=== PATIENT | male | born 1935 | race Caucasian/White ===

== ENCOUNTER 2017-03-27 07:19 | Day surgery (SDC) | payer MEDICARE, OTHER ==
[~2017-03-27] VITALS: Ht 180.3 cm; Wt 68.2 kg
[~2017-03-27 07:19] MED LIST: ATOR10TA PO; CHLO10 PO; FLUC100T41 PO; FOLI1 PO; OMEP20TA39 PO; OXYC1SOL5 PO; THIA100T PO
[2017-03-27 07:42] VITALS: BP 129/68; PULSE 74; RESP 20; TEMP 97.5; O2SAT 90
[2017-03-27 08:20] LABS: PROTHROMBIN TIME - PATIENT 11.4 SEC (9.8-11.6)
[2017-03-27] MEDS ORDERED: ceFAZolin 2 GM PREMIX 50 ML - implanted port removal IV SCH (08:30)
[2017-03-27 09:50] VITALS: BP 125/67; PULSE 64; RESP 20; TEMP 97.4; O2SAT 98
[2017-03-27 10:05] VITALS: BP 120/57; PULSE 69; RESP 20; O2SAT 97
[2017-03-27 10:30] VITALS: BP 120/63; PULSE 65; RESP 20; O2SAT 98
--- NOTE | 2017-03-27 10:51 | PD.RAD ---
Post Procedure Progress Note Pre Procedure Diagnosis: (1) Esophageal adenocarcinoma Post Procedure Diagnosis: (1) Esophageal adenocarcinoma Procedure Date: Mar 27, 2017 Supervising Radiologist: Torey Reyes Proceduralist/Assist: Yulissa Campo, RT(R)(CV), RT Reynaldo(R) Anesthesia: Local Plan of Activity Patient to Unit: ROPU Patient Condition: Good See PACS Report for procedural detail/treatment Central Venous Access Device Procedure 1 Right Internal Jugular Infusaport Removal single lumen Torey Reyes MD Mar 27, 2017 10:51
[2017-03-27] MEDS ORDERED: SODIUM CHLORIDE 0.9% FLUSH 10 ML FLUSH IVF PRN (11:00)
--- NOTE | 2017-03-27 12:31 | RADRPT ---
EXAM DATE/TIME: 03/27/2017 00:00 [facility] COMPARISON: No previous studies available for comparison. INDICATIONS : Patient no longer in need of port, here for port removal. MEDICAL HISTORY : Esophageal carcinoma, 2005 prostate cancer, hypertension, hypercholesterolemia, GERD, EtOH abuse and tobacco abuse SURGICAL HISTORY : Left ankle surgery, left inguinal hernia repair, 2004 Prostate cancer treated wt radioactive seeds with palladium. ENCOUNTER: Initial ACUITY: 1 year PAIN SCORE: 0/10 0 minutes 1.) 100 mcg fentanyl (Sublimaze) IV PROCEDURE : 1. Removal of [id number]. 2. Conscious sedation with continuous EKG and oximetry monitoring. The risk, benefits and potential complications of [id number] removal were discussed. Written conse nt was obtained. The patient was placed supine. The chest wall was prepped in sterile fashion. Full sterile techniqu e was used, including cap, mask, sterile gloves and gown, and a large sterile sheet. Hand hygiene an d 2% chlorhexidine and/or Betadine/alcohol prep was utilized per protocol for cutaneous antisepsis. The skin and subcutaneous tissues were infiltrated with local anesthetic solution. A small incision w as made, the subcutaneous pocket was opened. The port was dissected from the subcutaneous tissues and easily removed in one piece. The pocket incision was closed with subcuticular Vicryl suture. Steri -Strips were applied. Conscious sedation was performed with the prescribed dosages and duration as above in the presence of an independent trained radiology nurse to assist in the monitoring of the patient. EKG and oximetry remained stable throughout the procedure. The patient tolerated the procedure well and there were no complications. The patient was sent to post anesthesia recovery in stable condition. CONCLUSION: Uncomplicated port removal as above. Torey Reyes MD on March 27, 2017 at 12:29 Board Certified Radiologist. This report was verified electronically.
== END 2017-03-27 10:35 | disposition home or self-care (01) ==
LOC: HROP 07:19 → HRIP 07:22 → HROP 10:35
PROVIDERS: ATTEND Internal Medicine Hematology & Oncology
DX: Z45.2 Encounter for adjustment and management of vascular access device (principal); C15.4 Malignant neoplasm of middle third of esophagus; I10 Essential (primary) hypertension; E78.00 Pure hypercholesterolemia, unspecified; K21.9 Gastro-esophageal reflux disease without esophagitis; R07.9 Chest pain, unspecified; F10.10 Alcohol abuse, uncomplicated; F17.200 Nicotine dependence, unspecified, uncomplicated; Z85.46 Personal history of malignant neoplasm of prostate; Z01.818 Encounter for other preprocedural examination
CPT/HCPCS: 36590; 85610; 85730; J0690; J3010

== ENCOUNTER 2017-09-04 07:57 | Inpatient (IN) | payer MEDICARE, OTHER ==
[~2017-09-04] VITALS: Ht 180.3 cm; Wt 58.9 kg
[2017-09-04] VITALS (7 sets, daily range): BP systolic 123–155; BP diastolic 60–69; PULSE 53–72; RESP 16–20; TEMP 97.2–97.6; O2SAT 96–100
--- NOTE | 2017-09-04 08:40 | PD ---
HPI Chief Complaint: Medical Clearance Time Seen by Provider: 08:15 Travel History International Travel<30 days: No Contact w/Intl Traveler<30days: No Traveled to known affect area: No History of Present Illness HPI 82-year-old male complains of trouble swallowing food. Patient has history of esophageal cancer. 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 He had no evidence of metastatic disease. Patient was treated with chemotherapy and radiation therapy which completed in 2015. Patient had PET scan done on October which shows suspicious for recurrent disease at the gastric junction. Patient had endoscopy done by Dr. Miner in 2017 was reported to be normal. Patient however complains of trouble swallowing food for the past 2 weeks. Patient states that he has to drink water and sure slowly to get that through. Patient states that he has occasional trouble with eating food. Patient states that he has vomiting with eating solid food. Patient denies any headache. Patient denies any chest pain or shortness of breath. Patient denies abdominal pain. Patient denies any fever chills. Patient was seen by Dr. Pearson, oncologist yesterday and was advised to be admitted for endoscopy workup. Patient has history GERD, hyperlipidemia, hypertension, prostate cancer status post radioactive treatment. PFSH Past Medical History Arthritis: Yes (HANDS) Asthma: No Autoimmune Disease: No Heart Rhythm Problems: No Cancer: Yes (THROAT/PROSTATE) Cardiovascular Problems: No High Cholesterol: Yes Chemotherapy: Yes Chest Pain: Yes Congestive Heart Failure: No COPD: No Cerebrovascular Accident: No Diabetes: No Diminished Hearing: No Gastrointestinal Disorders: Yes (Esophageal Cancer 2016) GERD: Yes Glaucoma: No Genitourinary: No Headaches: No Hepatitis: No Hiatal Hernia: No Hypertension: Yes Immune Disorder: Yes Kidney Stones: No Musculoskeletal: No Neurologic: No Psychiatric: No Reproductive: Yes Respiratory: No Immunizations Current: No Myocardial Infarction: No Radiation Therapy: Yes (seeds) Renal Failure: No Seizures: No Sleep Apnea: No Thyroid Disease: No Ulcer: No Tetanus Vaccination: > 5 Years Influenza Vaccination: No Past Surgical History Abdominal Surgery: No AICD: No Cardiac Surgery: No Ear Surgery: No Endocrine Surgery: No Eye Surgery: No Genitourinary Surgery: No Gynecologic Surgery: No Neurologic Surgery: No Oral Surgery: No Pacemaker: No Thoracic Surgery: No Other Surgery: Yes (HERNIA REPAIR APPROXIMATELY 20 YEARS AGO) Social History Alcohol Use: No (2 BEERS PER DAY) Tobacco Use: Yes (1PPD) Substance Use: No Allergies-Medications (Allergen,Severity, Reaction): Coded Allergies: penicillin G (Unverified Allergy, Mild, Rash, 09/04/17) Reported Meds & Prescriptions Reported Meds & Active Scripts Active No Active Prescriptions or Reported Medications Review of Systems General / Constitutional: No: Fever Eyes: No: Visual changes HENT: No: Headaches Cardiovascular: No: Chest Pain or Discomfort Respiratory: No: Shortness of Breath Gastrointestinal: Positive: Loss of Appetite, No: Abdominal Pain Genitourinary: No: Dysuria Musculoskeletal: No: Pain Skin: No Rash Neurologic: No: Weakness Psychiatric: No: Depression Endocrine: No: Polydipsia Hematologic/Lymphatic: No: Easy Bruising Physical Exam Narrative GENERAL: Well-nourished, well-developed patient. SKIN: Focused skin assessment warm/dry. HEAD: Normocephalic. EYES: No scleral icterus. No injection or drainage. NECK: Supple, trachea midline. No JVD or lymphadenopathy. CARDIOVASCULAR: Regular rate and rhythm without murmurs, gallops, or rubs. RESPIRATORY: Breath sounds equal bilaterally. No accessory muscle use. GASTROINTESTINAL: Abdomen soft, non-tender, nondistended. MUSCULOSKELETAL: No cyanosis, or edema. BACK: Nontender without obvious deformity. No CVA tenderness. Neurologic exam normal. Data Data Last Documented VS Vital Signs Date Time Temp Pulse Resp B/P (MAP) Pulse Ox O2 Delivery O2 Flow Rate FiO2 09/04/17 08:33 97 Room Air 09/04/17 08:33 16 09/04/17 08:07 97.2 72 123/60 (81) Orders Orders Electrocardiogram (09/04/17 08:25) Complete Blood Count With Diff (09/04/17 08:25) Comprehensive Metabolic Panel (09/04/17 08:25) Prothrombin Time / Inr (Pt) (09/04/17 08:25) Act Partial Throm Time (Ptt) (09/04/17 08:25) Chest, Single Ap (09/04/17 08:25) Iv Access Insert/Monitor (09/04/17 08:25) Ecg Monitoring (09/04/17 08:25) Oximetry (09/04/17 08:25) Labs Laboratory Tests Test 09/04/17 08:35 White Blood Count 7.9 TH/MM3 Red Blood Count 4.11 MIL/MM3 Hemoglobin 13.6 GM/DL Hematocrit 39.9 % Mean Corpuscular Volume 97.2 FL Mean Corpuscular Hemoglobin 33.0 PG Mean Corpuscular Hemoglobin Concent 34.0 % Red Cell Distribution Width 13.2 % Platelet Count 199 TH/MM3 Mean Platelet Volume 7.8 FL Neutrophils (%) (Auto) 76.7 % Lymphocytes (%) (Auto) 14.9 % Monocytes (%) (Auto) 6.7 % Eosinophils (%) (Auto) 1.4 % Basophils (%) (Auto) 0.3 % Neutrophils # (Auto) 6.0 TH/MM3 Lymphocytes # (Auto) 1.2 TH/MM3 Monocytes # (Auto) 0.5 TH/MM3 Eosinophils # (Auto) 0.1 TH/MM3 Basophils # (Auto) 0.0 TH/MM3 CBC Comment DIFF FINAL Differential Comment Prothrombin Time 11.6 SEC Prothromb Time International Ratio 1.1 RATIO Activated Partial Thromboplast Time 27.0 SEC Blood Urea Nitrogen 20 MG/DL Creatinine 1.08 MG/DL Random Glucose 142 MG/DL Total Protein 7.4 GM/DL Albumin 3.5 GM/DL Calcium Level 9.1 MG/DL Alkaline Phosphatase 177 U/L Aspartate Amino Transf (AST/SGOT) 33 U/L Alanine Aminotransferase (ALT/SGPT) 31 U/L Total Bilirubin 0.5 MG/DL Sodium Level 135 MEQ/L Potassium Level 4.1 MEQ/L Chloride Level 100 MEQ/L Carbon Dioxide Level 28.4 MEQ/L Anion Gap 7 MEQ/L Estimat Glomerular Filtration Rate 65 ML/MIN [place] Medical Decision Making Medical Screen Exam Complete: Yes Emergency Medical Condition: Yes Interpretation(s) Last Impressions Chest X-Ray 09/04/17 0825 Signed Impressions: Service Date/Time: Monday, September 04, 2017 08:35 - CONCLUSION: New minimal parenchymal changes right apex New from comparison study. Waldemar Mckeon MD FACR 1348 PM. CBC within normal limits. Sodium 135. BUN 20. GFR 65. Glucose 142. Differential Diagnosis Differential diagnosis including recurrence of esophageal cancer, dysphagia, motility problem. Narrative Course 82-year-old male with problem with swallowing. History of esophageal cancer. Recent PET scan showed possible recurrence in the gastric junction. Normal saline solution 1 25 cc an hour. Diagnosis Primary Impression: Esophageal obstruction Additional Impression: History of esophageal cancer Admitting Information Admitting Physician Requests: Admit Scripts No Active Prescriptions or Reported Meds Nghia Downs MD Sep 04, 2017 08:40
[2017-09-04 08:48] LABS: BASOPHIL % 0.3 % (0.0-2.0); EOSINOPHIL # 0.1 TH/MM3 (0-0.4); EOSINOPHIL % 1.4 % (0.0-4.0); HEMATOCRIT 39.9 % (39.0-51.0); HEMOGLOBIN 13.6 GM/DL (13.0-17.0); LYMPH % 14.9 % (9.0-44.0); LYMPHOCYTE # 1.2 TH/MM3 (1.0-4.8); MEAN CELL VOLUME 97.2 FL (80.0-100.0); MEAN PLATELET VOLUME 7.8 FL (7.0-11.0); MONO % 6.7 % (0.0-8.0); MONOCYTE # 0.5 TH/MM3 (0-0.9); NEUT % 76.7 % (16.0-70.0); PLATELET COUNT 199 TH/MM3 (150-450); RED BLOOD COUNT 4.11 MIL/MM3 (4.50-5.90); RED CELL DISTRIBUTION WIDTH 13.2 % (11.6-17.2); WHITE BLOOD COUNT 7.9 TH/MM3 (4.0-11.0)
--- NOTE | 2017-09-04 08:48 | RADRPT ---
EXAM DATE/TIME: 09/04/2017 08:35 [facility] COMPARISON: CHEST SINGLE AP, October 16, 2015, 9:25. INDICATIONS : Distal esophageal pain when eating. Patient states recurrence of esophageal carcinoma. MEDICAL HISTORY : Carcinoma, prostatic. Carcinoma, esophageal. Gastroesophageal reflux disease. SURGICAL HISTORY : Hernia repair. ENCOUNTER: Initial ACUITY: 3 days PAIN SCORE: 4/10 LOCATION: distal esophagus FINDINGS: Minimal parenchymal changes in the right apex new from comparison study. No other suspicious lung no dules.. The cardiomediastinal contours are unremarkable. Osseous structures are intact. CONCLUSION: New minimal parenchymal changes right apex New from comparison study. Waldemar Mckeon MD FACR on September 04, 2017 at 8:44 Board Certified Radiologist. This report was verified electronically.
[2017-09-04 08:56] LABS: INTERNATIONAL NORMALIZED RATIO 1.1 RATIO; PROTHROMBIN TIME - PATIENT 11.6 SEC (9.8-11.6)
[2017-09-04 09:11] LABS: ALBUMIN 3.5 GM/DL (3.4-5.0); AST (GOT) 33 U/L (15-37); BICARBONATE 28.4 MEQ/L (21.0-32.0); BLOOD UREA NITROGEN 20 MG/DL (7-18); CALCIUM 9.1 MG/DL (8.5-10.1); CHLORIDE 100 MEQ/L (98-107); CREATININE 1.08 MG/DL (0.60-1.30); GLOMERULAR FILTRATION RATE 65 ML/MIN (>89); GLUCOSE,RANDOM 142 MG/DL (74-106); SODIUM (NA) 135 MEQ/L (136-145)
[2017-09-04 09:12] LABS: ALT (GPT) 31 U/L (12-78)
[2017-09-04 09:15] LABS: ALKALINE PHOSPHATASE 177 U/L (45-117); TOTAL BILIRUBIN ADULT 0.5 MG/DL (0.2-1.0); TOTAL PROTEIN 7.4 GM/DL (6.4-8.2)
[2017-09-04] MEDS ORDERED: SODIUM CHLORIDE 0.9% FLUSH 10 ML FLUSH IV FLUSH PRN (14:15)
[2017-09-04] MEDS ORDERED: NALOXONE HCL 0.4 MG/ML AMP IV PUSH PRN (14:15)
[2017-09-04] MEDS ORDERED: BISACODYL 10 MG SUPP RECTAL PRN (14:15)
[2017-09-04] MEDS ORDERED: MAGNESIUM HYDROXIDE SUSP 30 ML CUP PO PRN (14:15)
[2017-09-04] MEDS ORDERED: ACETAMINOPHEN 325 MG TAB PO PRN (14:15)
[2017-09-04] MEDS ORDERED: SODIUM CHLOR 0.9% 1000 ML INJ 1,000 ML IV SCH (14:15)
[2017-09-04] MEDS ORDERED: SENNOSIDES 8.6 MG TAB PO PRN (14:15)
[2017-09-04] MEDS ORDERED: LACTULOSE SYRUP 20 GM/30 ML CUP PO PRN (14:15)
[2017-09-04] MEDS ORDERED: ONDANSETRON HCL 4 MG/2 ML VIAL IVP PRN (14:15)
[2017-09-04] MEDS: SODIUM CHLOR 0.45% 1000 ML INJ 1,000 ML IV SCH (15:16)
[2017-09-04] MEDS: HEPARIN SODIUM - SQ 10,000 UNITS/ML VIAL SQ SCH (15:16)
--- NOTE | 2017-09-04 16:04 | PD.CONS ---
HPI History of Present Illness This is a 82 year old male with hx esophageal ca diagnosed 2016 s/p chemo and radiation who was referred by Dr Church for endoscopic w/u after having recent PET scan suspicious for recurrent malignancy GE junction. Pt had normal EGD 2017. Pt is c/o of dysphagia and weight loss. For the last 2-3 weeks he has had difficulty swallowing solids and some liquids. He regurgitates most solid food that he eats. he is able to tolerate liquids and ensure but it takes him a long time to drink small amounts. He has lost 20lbs in the last 3-4 weeks. He is scheduled for EUS with Dr Murrell 09/20/17. (Cata Andujar) PFSH Past Medical History prostate ca esophageal ca Past Surgical History ORIF ankle prostate seeds (Cata Andujar) Coded Allergies: penicillin G (Unverified Allergy, Mild, Rash, 09/04/17) Family History unk Social History drinks 1 beer daily but none in last couple weeks smokes 1ppd denies illicit drug use (Cata Andujar) Review of Systems Constitutional: COMPLAINS OF: Weight loss Endocrine: DENIES: Polydipsia Eyes: DENIES: Blurred vision Ears, nose, mouth, throat: DENIES: Hearing loss Respiratory: DENIES: Cough Cardiovascular: DENIES: Chest pain Gastrointestinal: COMPLAINS OF: Vomiting, Difficulty Swallowing, DENIES: Abdominal pain, Black stools, Bloody stools, Nausea, Odynophagia, Hematemesis Genitourinary: DENIES: Hematuria Musculoskeletal: DENIES: Joint Swelling Integumentary: DENIES: Rash Hematologic/lymphatic: DENIES: Bruising Immunologic/allergic: DENIES: Eczema Neurologic: DENIES: Abnormal gait Psychiatric: DENIES: Confusion (Cata Andujar) GI Exam Vitals I&O Vital Signs Date Time Temp Pulse Resp B/P (MAP) Pulse Ox O2 Delivery O2 Flow Rate FiO2 09/04/17 15:00 54 20 145/65 (91) 96 Room Air 09/04/17 13:00 57 19 144/65 (91) 96 Room Air 09/04/17 11:00 60 19 124/60 (81) 97 Room Air 09/04/17 08:33 97 Room Air 09/04/17 08:33 16 99 Room Air 09/04/17 08:07 97.2 72 17 123/60 (81) 100 Imaging Last Impressions Chest X-Ray 09/04/17 0855 Signed Impressions: Service Date/Time: Monday, September 04, 2017 08:35 - CONCLUSION: New minimal parenchymal changes right apex New from comparison study. Waldemar Mckeon MD FACR Laboratory Test 09/04/17 08:35 White Blood Count 7.9 TH/MM3 Red Blood Count 4.11 MIL/MM3 Hemoglobin 13.6 GM/DL Hematocrit 39.9 % Mean Corpuscular Volume 97.2 FL Mean Corpuscular Hemoglobin 33.0 PG Mean Corpuscular Hemoglobin Concent 34.0 % Red Cell Distribution Width 13.2 % Platelet Count 199 TH/MM3 Mean Platelet Volume 7.8 FL Neutrophils (%) (Auto) 76.7 % Lymphocytes (%) (Auto) 14.9 % Monocytes (%) (Auto) 6.7 % Eosinophils (%) (Auto) 1.4 % Basophils (%) (Auto) 0.3 % Neutrophils # (Auto) 6.0 TH/MM3 Lymphocytes # (Auto) 1.2 TH/MM3 Monocytes # (Auto) 0.5 TH/MM3 Eosinophils # (Auto) 0.1 TH/MM3 Basophils # (Auto) 0.0 TH/MM3 CBC Comment DIFF FINAL Differential Comment Prothrombin Time 11.6 SEC Prothromb Time International Ratio 1.1 RATIO Activated Partial Thromboplast Time 27.0 SEC Blood Urea Nitrogen 20 MG/DL Creatinine 1.08 MG/DL Random Glucose 142 MG/DL Total Protein 7.4 GM/DL Albumin 3.5 GM/DL Calcium Level 9.1 MG/DL Alkaline Phosphatase 177 U/L Aspartate Amino Transf (AST/SGOT) 33 U/L Alanine Aminotransferase (ALT/SGPT) 31 U/L Total Bilirubin 0.5 MG/DL Sodium Level 135 MEQ/L Potassium Level 4.1 MEQ/L Chloride Level 100 MEQ/L Carbon Dioxide Level 28.4 MEQ/L Anion Gap 7 MEQ/L Estimat Glomerular Filtration Rate 65 ML/MIN Physical Examination HEENT: PERRL; normocephalic; atraumatic; no jaundice. CHEST: CTA, diminished CARDIAC: RRR ABDOMEN: Soft, nondistended, nontender; no hepatosplenomegaly; bowel sounds are present in all four quadrants. EXTREMITIES: No clubbing, cyanosis, or edema. SKIN: Normal; no rash; no jaundice. OWNER/PHOTOGRAPHER: No focal deficits; alert and oriented times three. (Cata Andujar) Assessment and Plan Plan ASSESSMENT - dysphagia, weight loss - poss malignancy. 2-3 weeks difficulty swallowing, regurgitates solids and must drink liquids slowly. reportedly normal EGD 2016. recent PET scan suspicious for recurrent malignancy GE jxn. CT 06/2017 showing enlargement previously seen mass GE jxn. scheduled for EUS 09/20/17. lost 20lbs in last 3-4 wks PLAN - EGD in am - obtain consent - full liquid diet - NPO after midnight - further recs to follow pt seen by myself and Dr Lora and this note is on his behalf (Cata Andujar) Plan patient was seen and examined, agree with above note, possible esophageal cancer recurrence, plan EGD in am, also may need EUS for submucosal evaluation (Marty Lora MD) Cata Andujar Sep 04, 2017 16:04 Marty Lora MD Sep 04, 2017 16:13
[2017-09-04] MEDS: DOCUSATE SODIUM 50 MG/SENNA 8.6 MG TAB PO SCH (20:55)
[2017-09-04] MEDS: SODIUM CHLORIDE 0.9% FLUSH 10 ML FLUSH IV FLUSH SCH (20:56)
--- NOTE | 2017-09-04 21:01 | EKG ---
Date Performed: 09/04/2017 Time Performed: 08:29:11 PTAGE: 82 years EKG: SINUS BRADYCARDIA WITH FIRST DEGREE AV BLOCK ABNORMAL ECG INTERPRETATION BASED ON A DEFAULT AGE OF 40 YEARS NO PREVIOUS TRACING DOCTOR: Jamie Beauchamp Interpretating Date/Time 09/04/2017 21:00:09
--- NOTE | 2017-09-04 22:05 | MB ---
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 PATIENT PROFILE: The patient is an 82-year-old male. He is . He was born in [place], and has lived in [place] since 1955. He has 1 son. He resides in [place]. He is retired. 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 He has smoked 1-1/2 packs of cigarettes per day for at least 50 years, although at the present tobacco use is rare. He is alcoholic. In the past he would drink 8 beers per day. Currently, he still drinks, but a limited amount because he is unable to swallow. HISTORY OF PRESENT ILLNESS: The patient is an 82-year-old male who developed progressive dysphagia. On 10/17/2015, he had a CAT scan of the thorax and was found to have a 6 cm mass involving the mid esophagus. On 10/17/2015 he had upper endoscopy and biopsy of the mid esophagus and was found to have a moderately differentiated squamous cell carcinoma. He had no evidence of metastatic disease and his clinical stage was T3 N0 M0. He was treated with a combination of radiation therapy and weekly carboplatin and Taxol using the CROSS regimen. He did well and had a complete response. He underwent sequential PET scans and upper endoscopies and had no evidence of active disease. He had a followup PET CT scan on 07/16/2017. He had an appointment to see me following this. The PET scan was positive for recurrent tumor involving the distal esophagus or proximal stomach. He arrived at the office and after waiting for between 30 and 45 minutes, he left and decided that he would rather go to a bar. He went to the bar, drank, returned home. We contacted him and he did not return until I saw him yesterday. On 08/02/[address] Church who felt that he had recurrence and referred him for upper endoscopy. I saw the patient yesterday in the office and it was apparent that he needed to move forward with evaluation and treatment immediately. His upper endoscopy was scheduled for approximately 2 or 3 weeks from now. Mr. Marie is unable to swallow or consume any significant amount of liquid or food. He has severe dysphagia. He has lost 20 pounds. He has muscle loss. He is slowly dying. Arrangements were made for admission to the hospital, which has occurred this morning. His PET scan did not show evidence of metastatic disease. It was not possible to tell whether there was disease outside the esophagus or adjacent lymph nodes. PAST SURGICAL HISTORY: 1. Left ankle surgery. 2. Left inguinal hernia repair. 3. 2004, prostate cancer diagnosed, treated with palladium seeds. 4. Colonoscopy in 2015. 5. 10/17/2015 upper endoscopy and biopsy of mid esophagus revealing invasive squamous cell cancer. PAST MEDICAL HISTORY: 1. 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 2. Alcoholism. 3. Tobacco use. 4. Arthritis. 5. Transient hypertension. 6. Prostate cancer in remission. ALLERGIES: QUESTIONABLE ALLERGY TO PENICILLIN. MEDICATIONS PRIOR TO ADMISSION: No active medications. FAMILY HISTORY: Noncontributory. REVIEW OF SYSTEMS: No change in vision or hearing. No chest pain or palpitations. No shortness of breath. Rare cough. No abdominal pain. Approximately 15-20 pound weight loss in the past several weeks, severe dysphagia. It takes him about 1/2 an hour to sip a drink. No melena, hematochezia, hematemesis. Occasionally, he will vomit phlegm. No problems with urination. No bone pain. No focal weakness. No psychiatric issues. LABORATORY DATA: Hemoglobin 13, white count 7900, platelets 199,000. Electrolytes, BUN and creatinine unremarkable. PHYSICAL EXAM: patient is gaunt and with significant wt loss BP 120/65, R 18, Pulse 70, afebrile HEENT: normal NO adenopathy neck supple without masses heart reg rhythm without gallops or murmurs Lungs: clear Breast: no masses Abd: soft, liver 1 cm below right costal margin Extrem: no edema MSK: muscle wasting SKin: normal Neurologic: normal Psychiatric: normal ASSESSMENT: The patient is an 82-year-old male who was diagnosed with a clinical T3 N0 M0 squamous cell cancer of the esophagus in 09/2015. He was treated with radiation with carboplatin and Taxol. On 07/16/2017 he had a PET scan highly suggestive of recurrent disease at the GE junction. He did not pursue evaluation and only recently with progressive weight loss and dysphagia is he actively pursuing evaluation. The PET scan did not show metastatic disease. RECOMMENDATIONS: 1. Upper endoscopy. 2. Surgical consult. I have placed a request for Dr. Menon. GI has been consulted. I have spoken with Dr. Menon 3: I spoke with Dr. Singer recently and he is not likely to benefit from further radiation 4: systemic chemotherapy will be difficult to tolerate and the impact limited. Hopefully he is a candidate for surgical resection of local recurrence. Humberto Pearson MD RW/rt , 09:08 PM , 10:05 PM MTDD
[2017-09-05 00:05] VITALS: BP 121/59; PULSE 80; RESP 16; TEMP 98.1; O2SAT 97
[2017-09-05] MEDS: HEPARIN SODIUM - SQ 10,000 UNITS/ML VIAL SQ SCH ×2 (03:00→15:00)
[2017-09-05 03:43] VITALS: BP 128/60; PULSE 81; RESP 20; TEMP 98.6; O2SAT 100
[2017-09-05] MEDS: SODIUM CHLOR 0.45% 1000 ML INJ 1,000 ML IV SCH ×2 (04:20→17:23)
[2017-09-05 07:00] VITALS: BP 107/57; PULSE 69; RESP 16; TEMP 96.3; O2SAT 96
--- NOTE | 2017-09-05 07:38 | HHI.HP ---
History of Present Illness Primary Care Physician Anderson Nair, DO Admission Diagnosis Esophageal obstruction. History of esophageal cancer. Diagnoses: Past Family Social History Allergies: Coded Allergies: penicillin G (Unverified Allergy, Mild, Rash, 09/04/17) Physical Exam Vital Signs Vital Signs Date Time Temp Pulse Resp B/P (MAP) Pulse Ox O2 Delivery O2 Flow Rate FiO2 09/05/17 03:43 98.6 81 20 128/60 (82) 100 09/05/17 00:05 98.1 80 16 121/59 (79) 97 09/05/17 00:00 Room Air 09/04/17 20:04 Room Air 09/04/17 19:50 97.3 53 16 145/69 (94) 99 09/04/17 17:56 97.6 57 17 155/68 (97) 98 09/04/17 15:00 54 20 145/65 (91) 96 Room Air 09/04/17 13:00 57 19 144/65 (91) 96 Room Air 09/04/17 11:00 60 19 124/60 (81) 97 Room Air 09/04/17 08:33 97 Room Air 09/04/17 08:33 16 99 Room Air 09/04/17 08:07 97.2 72 17 123/60 (81) 100 Physical Exam GENERAL: This is a well-nourished, well-developed patient, in no apparent distress. SKIN: No rashes, ecchymoses or lesions. Cool and dry. HEAD: Atraumatic. Normocephalic. No temporal or scalp tenderness. EYES: Pupils equal round and reactive. Extraocular motions intact. No scleral icterus. No injection or drainage. ENT: Nose without bleeding, purulent drainage or septal hematoma. Throat without erythema, tonsillar hypertrophy or exudate. Uvula midline. Airway patent. NECK: Trachea midline. No JVD or lymphadenopathy. Supple, nontender, no meningeal signs. CARDIOVASCULAR: Regular rate and rhythm without murmurs, gallops, or rubs. RESPIRATORY: Clear to auscultation. Breath sounds equal bilaterally. No wheezes , rales, or rhonchi. GASTROINTESTINAL: Abdomen soft, non-tender, nondistended. No hepato-splenomegaly , or palpable masses. No guarding. MUSCULOSKELETAL: Extremities without clubbing, cyanosis, or edema. No joint tenderness, effusion, or edema noted. No calf tenderness. Negative Homans sign bilaterally. NEUROLOGICAL: Awake and alert. Cranial nerves II through XII intact. Motor and sensory grossly within normal limits. Five out of 5 muscle strength in all muscle groups. Normal speech. Laboratory Laboratory Tests Test 09/04/17 08:35 White Blood Count 7.9 Red Blood Count 4.11 Hemoglobin 13.6 Hematocrit 39.9 Mean Corpuscular Volume 97.2 Mean Corpuscular Hemoglobin 33.0 Mean Corpuscular Hemoglobin Concent 34.0 Red Cell Distribution Width 13.2 Platelet Count 199 Mean Platelet Volume 7.8 Neutrophils (%) (Auto) 76.7 Lymphocytes (%) (Auto) 14.9 Monocytes (%) (Auto) 6.7 Eosinophils (%) (Auto) 1.4 Basophils (%) (Auto) 0.3 Neutrophils # (Auto) 6.0 Lymphocytes # (Auto) 1.2 Monocytes # (Auto) 0.5 Eosinophils # (Auto) 0.1 Basophils # (Auto) 0.0 CBC Comment DIFF FINAL Differential Comment Prothrombin Time 11.6 Prothromb Time International Ratio 1.1 Activated Partial Thromboplast Time 27.0 Blood Urea Nitrogen 20 Creatinine 1.08 Random Glucose 142 Total Protein 7.4 Albumin 3.5 Calcium Level 9.1 Alkaline Phosphatase 177 Aspartate Amino Transf (AST/SGOT) 33 Alanine Aminotransferase (ALT/SGPT) 31 Total Bilirubin 0.5 Sodium Level 135 Potassium Level 4.1 Chloride Level 100 Carbon Dioxide Level 28.4 Anion Gap 7 Estimat Glomerular Filtration Rate 65 Result Diagram: 09/04/1735 09/04/1735 Caprini VTE Risk Assessment Caprini VTE Risk Assessment: Mod/High Risk (score >= 2) Caprini Risk Assessment Model Point Value = 1 Point Value = 2 Point Value = 3 Point Value = 5 Age 41-60 Minor surgery BMI > 25 kg/m2 Swollen legs Varicose veins or History of unexplained or recurrent spontaneous Oral contraceptives or hormone replacement Sepsis (< 1 month) Serious lung disease, including pneumonia (< 1 month) Abnormal pulmonary function Acute myocardial infarction Congestive heart failure (< 1 month) History of inflammatory bowel disease Medical patient at bed rest Age 61-74 Arthroscopic surgery Major open surgery (> 45 min) Laparoscopic surgery (> 45 min) Malignancy Confined to bed (> 72 hours) Immobilizing plaster cast Central venous access Age >= 75 History of VTE Family history of VTE Factor V Leiden Prothrombin [id number] Lupus anticoagulant Anticardiolipin antibodies Elevated serum homocysteine Heparin-induced thrombocytopenia Other congenital or acquired thrombophilia Stroke (< 1 month) Elective arthroplasty Hip, pelvis, or leg fracture Acute spinal cord injury (< 1 month) Prophylaxis Regimen Total Risk Factor Score Risk Level Prophylaxis Regimen 0-1 Low Early ambulation 2 Moderate Order ONE of the following: *Sequential Compression Device (SCD) *Heparin 5000 units SQ BID 3-4 Higher Order ONE of the following medications: *Heparin 5000 units SQ TID *Enoxaparin/Lovenox 40 mg SQ daily (WT < 150 kg, CrCl > 30 mL/min) *Enoxaparin/Lovenox 30 mg SQ daily (WT < 150 kg, CrCl > 10-29 mL/min) *Enoxaparin/Lovenox 30 mg SQ BID (WT < 150 kg, CrCl > 30 mL/min) AND/OR *Sequential Compression Device (SCD) 5 or more Highest Order ONE of the following medications: *Heparin 5000 units SQ TID (Preferred with Epidurals) *Enoxaparin/Lovenox 40 mg SQ daily (WT < 150 kg, CrCl > 30 mL/min) *Enoxaparin/Lovenox 30 mg SQ daily (WT < 150 kg, CrCl > 10-29 mL/min) *Enoxaparin/Lovenox 30 mg SQ BID (WT < 150 kg, CrCl > 30 mL/min) AND *Sequential Compression Device (SCD) Assessment and Plan Problem List: (1) Esophageal obstruction ICD Codes: K22.2 - Esophageal obstruction Status: Acute Plan: NPO for feeding tube placement (2) History of esophageal cancer ICD Codes: Z85.01 - Personal history of malignant neoplasm of esophagus Status: Acute Discharge Planning Gi/ Oncology consulted follow recommendations. Yanet Shepherd Sep 05, 2017 07:38
[2017-09-05] MEDS: DOCUSATE SODIUM 50 MG/SENNA 8.6 MG TAB PO SCH ×2 (09:00→21:04)
[2017-09-05 10:07] LABS: ALBUMIN 2.9 GM/DL (3.4-5.0); ALKALINE PHOSPHATASE 156 U/L (45-117); ALT (GPT) 23 U/L (12-78); AST (GOT) 26 U/L (15-37); BICARBONATE 26.2 MEQ/L (21.0-32.0); BLOOD UREA NITROGEN 16 MG/DL (7-18); CHLORIDE 100 MEQ/L (98-107); CREATININE 0.76 MG/DL (0.60-1.30); GLOMERULAR FILTRATION RATE 98 ML/MIN (>89); GLUCOSE,RANDOM 72 MG/DL (74-106); SODIUM (NA) 134 MEQ/L (136-145); TOTAL BILIRUBIN ADULT 0.6 MG/DL (0.2-1.0); TOTAL PROTEIN 6.4 GM/DL (6.4-8.2)
[2017-09-05] MEDS: SODIUM CHLORIDE 0.9% FLUSH 10 ML FLUSH IV FLUSH SCH ×2 (10:35→21:00)
[2017-09-05] MEDS ORDERED: LIDOCAINE HCL 1% PF 5 ML SYRINGE OTHER ONE (12:00)
[2017-09-05] MEDS ORDERED: PROPOFOL 200 MG/20 ML AMP IV ONE (12:00)
--- NOTE | 2017-09-05 13:29 | PD.PROCEDR ---
GI Procedure PROCEDURE PERFORMED Upper endoscopy with biopsy INDICATION FOR PROCEDURE Dysphagia, history of esophageal cancer PROCEDURE: The procedure, risks and benefits were discussed with Mr. Marie and informed consent was obtained. Anesthesia sedated him with Diprivan. He was placed in the left lateral decubitus position. EGD: The Pentax videoscope was introduced through the oropharynx and advanced to the second portion of the duodenum under direct visualization. Retroflexion was performed in the stomach. Biopsy from the EG junction ESTIMATED BLOOD LOSS: None SPECIMENS REMOVED: EG junction COMPLICATIONS: None IMPRESSION: Esophagus patient has what looked look like mucosal tear, patient has significant nausea vomiting that's this could be Hailey-Pearson tear, she also has significant narrowing of the esophagus with thickening of the EG junction biopsy was done to rule out recurrent of esophageal cancer, dilation was not performed because of the tear in the mucosa and the EG junction Stomach normal except some thickening at the EG junction on retroflexion biopsy was done Duodenum normal PLAN: Await biopsy results Clear liquid EUS for evaluation of the esophagus with EGD and dilation Marty Lora MD Sep 05, 2017 13:29
--- NOTE | 2017-09-05 13:31 | HHI.GIFU ---
Subjective Remarks Patient laying in bed, still having nausea and retching, some nausea vomiting this morning, no blood or hematemesis Objective Vitals I&O Vital Signs Date Time Temp Pulse Resp B/P (MAP) Pulse Ox O2 Delivery O2 Flow Rate FiO2 09/05/17 07:00 96.3 69 16 107/57 (74) 96 09/05/17 03:43 98.6 81 20 128/60 (82) 100 09/05/17 00:05 98.1 80 16 121/59 (79) 97 09/05/17 00:00 Room Air 09/04/17 20:04 Room Air 09/04/17 19:50 97.3 53 16 145/69 (94) 99 09/04/17 17:56 97.6 57 17 155/68 (97) 98 09/04/17 15:00 54 20 145/65 (91) 96 Room Air I/O 09/04/17 09/04/17 09/04/17 09/05/17 09/05/17 09/05/17 07:00 15:00 23:00 07:00 15:00 23:00 Intake Total 1142 ml Output Total 0 ml Balance 1142 ml Intake Oral 0 ml IV Total 1142 ml Output Stool Total 0 ml # Voids 3 Laboratory Laboratory Tests Test 09/05/17 07:12 Blood Urea Nitrogen 16 Creatinine 0.76 Random Glucose 72 Total Protein 6.4 Albumin 2.9 Calcium Level 9.0 Alkaline Phosphatase 156 Aspartate Amino Transf (AST/SGOT) 26 Alanine Aminotransferase (ALT/SGPT) 23 Total Bilirubin 0.6 Sodium Level 134 Potassium Level 4.1 Chloride Level 100 Carbon Dioxide Level 26.2 Anion Gap 8 Estimat Glomerular Filtration Rate 98 Physical Exam HEENT: Pupils round and reactive to light; normocephalic; atraumatic; no jaundice. Throat is clear. NECK: Neck is supple, no JVD, no lymphadenopathy. CHEST: Chest is clear to auscultation and percussion. CARDIAC: Regular rate and rhythm with no murmur gallop or rubs. ABDOMEN: Soft, nondistended, nontender; no hepatosplenomegaly; bowel sounds are present in all four quadrants. EXTREMITIES: No clubbing, cyanosis, or edema. SKIN: Normal; no rash; no jaundice. 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 Assessment and Plan Plan patient was seen and examined, patient has history of esophageal cancer, dysphagia, and endoscopy was done today IMPRESSION: Esophagus patient has what looked look like mucosal tear, patient has significant nausea vomiting that's this could be Hailey-Pearson tear, she also has significant narrowing of the esophagus with thickening of the EG junction biopsy was done to rule out recurrent of esophageal cancer, dilation was not performed because of the tear in the mucosa and the EG junction Stomach normal except some thickening at the EG junction on retroflexion biopsy was done Duodenum normal PLAN: Await biopsy results Clear liquid EUS for evaluation of the esophagus with EGD and dilation Marty Lora MD Sep 05, 2017 13:30
[2017-09-05 16:03] VITALS: BP 129/61; PULSE 64; RESP 18; TEMP 98; O2SAT 98
[2017-09-05 20:00] VITALS: BP 99/54; PULSE 74; RESP 18; TEMP 98.2; O2SAT 98
--- NOTE | 2017-09-05 21:18 | PD.ONC.PN ---
Subjective Subjective Remarks no complaints although swallowing difficult Objective Data Date Time Temp Pulse Resp B/P (MAP) Pulse Ox O2 Delivery O2 Flow Rate FiO2 09/05/17 20:00 98.2 74 18 99/54 (69) 98 09/05/17 16:03 98.0 64 18 129/61 (83) 98 09/05/17 16:00 Room Air 09/05/17 13:00 98.0 67 16 117/63 (81) 97 09/05/17 12:00 Room Air 09/05/17 08:00 Room Air 09/05/17 07:00 96.3 69 16 107/57 (74) 96 09/05/17 03:43 98.6 81 20 128/60 (82) 100 09/05/17 00:05 98.1 80 16 121/59 (79) 97 09/05/17 00:00 Room Air 09/05/17 09/05/17 09/05/17 07:00 15:00 23:00 Intake Total 1142 ml 200 ml 480 ml Output Total 0 ml 300 ml Balance 1142 ml 200 ml 180 ml Result Diagram: 09/04/17 0835 09/05/17 0712 Laboratory Results Laboratory Tests Test 09/05/17 07:12 Blood Urea Nitrogen 16 MG/DL Creatinine 0.76 MG/DL Random Glucose 72 MG/DL Total Protein 6.4 GM/DL Albumin 2.9 GM/DL Calcium Level 9.0 MG/DL Alkaline Phosphatase 156 U/L Aspartate Amino Transf (AST/SGOT) 26 U/L Alanine Aminotransferase (ALT/SGPT) 23 U/L Total Bilirubin 0.6 MG/DL Sodium Level 134 MEQ/L Potassium Level 4.1 MEQ/L Chloride Level 100 MEQ/L Carbon Dioxide Level 26.2 MEQ/L Anion Gap 8 MEQ/L Estimat Glomerular Filtration Rate 98 ML/MIN Administered Medications Medications (Trade) Dose Ordered Sig/Lauro Route PRN Reason Start Time Stop Time Status Last Admin Dose Admin Sodium Chloride 1,000 ml @ 75 mls/hr [id number] IV 09/04/17 15:00 09/05/17 17:23 Sodium Chloride (NS Flush) 2 ml BID IV FLUSH 09/04/17 21:00 09/05/17 10:35 Heparin Sodium (Porcine) (Heparin Inj) 5,000 units Q12H SQ 09/04/17 15:00 09/05/17 15:00 Senna/Docusate Sodium (Arabella-Colace) 1 tab BID PO 09/04/17 21:00 09/05/17 21:04 Objective Remarks GENERAL: gaunt SKIN: Warm and dry. HEAD: Normocephalic. EYES: No scleral icterus. No injection or drainage. NECK: Supple, trachea midline. No JVD or lymphadenopathy. LYMPHATIC: No adenopathy. CARDIOVASCULAR: Regular rate and rhythm without murmurs. RESPIRATORY: Breath sounds equal bilaterally. No accessory muscle use. GASTROINTESTINAL: Abdomen soft, non-tender, nondistended. EXTREMITIES: No cyanosis, or edema. MUSCULOSKELETAL: muscle wasting. NEUROLOGICAL: No obvious focal deficit. Awake, alert, and oriented x3. PSYCHIATRIC: Appropriate mood and affect; insight and judgment normal. Assessment/Plan Assessment 1: esophageal cancer: upper endo did not show tumor from what I understand. His recent pet scan was highly suggestive of recurrent disease and I wonder if we are dealing with disease outside of the lumen such as adenopathy. Would very much like to see ultrasound evaluation and he may ultimately come to a surgical procedure for diagnosis, staging and hopefully a successful intervention. Radiation or chemotherapy is not likely to have a lot to often him and I hope this is a surgical problem. Await further evaluation. Humberto Pearson MD Sep 05, 2017 21:18
[2017-09-06] VITALS (7 sets, daily range): BP systolic 104–117; BP diastolic 55–59; PULSE 61–76; RESP 16–19; TEMP 97.6–98.7; O2SAT 96–97
[2017-09-06] MEDS: HEPARIN SODIUM - SQ 10,000 UNITS/ML VIAL SQ SCH ×2 (03:16→15:00)
[2017-09-06] MEDS: SODIUM CHLOR 0.45% 1000 ML INJ 1,000 ML IV SCH ×2 (06:14→20:20)
--- NOTE | 2017-09-06 08:49 | MB ---
cc: Shola Menon MD DATE: 09/05/2017 REQUESTING PHYSICIAN: Dr. Humberto Pearson of medical oncology. REASON FOR CONSULTATION: Locally recurrent distal esophageal carcinoma. 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 This was done in mid 2015. He had tolerated treatment well, had a complete response and due to his age and comorbidities including active tobacco and alcohol use, did not undergo surgical resection. The patient was NAD undergoing a PET scan in 06/2017 which showed a positive area in distal esophagus at the inferior edge of the radiation field. The patient also experienced significant weight loss at this time up to 20 pounds due to dysphagia. Due to the concern for dehydration and malnutrition, a near obstructing mass, the patient was admitted to [facility] for further evaluation. The patient did undergo endoscopy. The patient was found to have a mucosal tear type lesion, possibly Hailey-Pearson tear. There is significant narrowing at the esophagus at the GE junction. Biopsies were performed. A dilation was done due to the possibility of a tear and making this worse. Otherwise, no abnormalities. The patient currently has no complaints. He is tolerating a liquid diet. He has no abdominal pain. REVIEW OF SYSTEMS: A 12-point review of systems was conducted with the patient and is negative except for the pertinent positives mentioned above in history of present illness. PAST MEDICAL HISTORY: History of alcoholism, tobacco abuse, history of arthritis, history of T3N0 squamous cell carcinoma completed treatment in 2016 as above. PAST SURGICAL HISTORY: Prostate cancer diagnosed 2015, status post seed placement, left inguinal hernia repair. FAMILY HISTORY: Noncontributory. ALLERGIES: POSSIBLE ALLERGY TO PENICILLIN. SOCIAL HISTORY: The patient denies illicit drug use. Does use alcohol and cigarettes daily. PHYSICAL EXAMINATION: VITAL SIGNS: Blood pressure 129/61, heart rate 64, respiratory rate 18, temperature 98.0. GENERAL: The patient is a thin, slightly malnourished, chronically ill-appearing male. HEENT: Head is normocephalic, atraumatic. Pupils are round and reactive to accommodation and light. Sclerae is anicteric. Oral cavity is clear. Airway is patent. NECK: Supple. No JVD. No lymphadenopathy. No supraclavicular lymphadenopathy. Breath sounds are decreased bilaterally, nonlabored breathing pattern. HEART: Regular rate and rhythm. ABDOMEN: Soft and nontender to palpation. No masses. No organomegaly. No ascites. No major surgery or scars. RECTAL: Exam is deferred. BACK: No CVA tenderness. EXTREMITIES: No clubbing, cyanosis or edema. Chronic changes with chronic vascular disease. NEUROLOGIC: The patient is awake, alert and oriented x 3. Nonfocal peripheral exam. Cranial nerves 2-12 are grossly intact. Mood, judgment and insight are intact. ASSESSMENT AND PLAN: The patient is an 82-year-old male with dysphagia with a history squamous cell carcinoma of the esophagus, status post definitive therapy. The patient has a PET scan with possible concern for recurrence. Endoscopy does show multiple abnormalities. Biopsies are pending. I discussed with the patient about the possibility of recurrent cancer and that we would await the biopsy results. I did discuss the possible management of the recurrent cancer with a salvage esophagectomy. I also discussed alternatives to this including palliation, including stent, including feeding tubes. All questions were answered to his satisfaction. We will followup on the biopsy results performed by GI and I do recommend the patient continue nutritious, but very thin liquid diet at this time. Thank you very much for this consultation. We will follow this patient along with you. MD LIZZY Subramanian/DINORAH , 08:25 AM , 08:47 AM KARMA
[2017-09-06] MEDS: SODIUM CHLORIDE 0.9% FLUSH 10 ML FLUSH IV FLUSH SCH ×2 (09:00→21:00)
[2017-09-06] MEDS: DOCUSATE SODIUM 50 MG/SENNA 8.6 MG TAB PO SCH ×2 (09:29→21:00)
--- NOTE | 2017-09-06 11:22 | HHI.PR ---
Subjective Remarks Seen this am, reports no complaints. Spouse in room. Objective Vital Signs Date Time Temp Pulse Resp B/P (MAP) Pulse Ox O2 Delivery O2 Flow Rate FiO2 09/06/17 11:03 97.6 65 16 116/57 (76) 96 09/06/17 08:00 Room Air 09/06/17 08:00 97.8 70 19 107/59 (75) 96 09/06/17 07:14 98.3 68 16 117/55 (75) 96 09/06/17 04:30 98.5 69 18 115/57 (76) 97 09/06/17 00:00 98.4 76 18 108/56 (73) 97 09/05/17 20:00 98.2 74 18 99/54 (69) 98 09/05/17 19:45 98 Room Air 09/05/17 16:03 98.0 64 18 129/61 (83) 98 09/05/17 16:00 Room Air 09/05/17 13:00 98.0 67 16 117/63 (81) 97 09/05/17 12:00 Room Air I/O 09/05/17 09/05/17 09/05/17 09/06/17 09/06/17 09/06/17 07:00 15:00 23:00 07:00 15:00 23:00 Intake Total 1142 ml 200 ml 480 ml 120 ml Output Total 0 ml 300 ml 400 ml Balance 1142 ml 200 ml 180 ml -280 ml Intake Oral 0 ml 480 ml 120 ml IV Total 1142 ml Other 200 ml Output Urine Total 300 ml 400 ml Stool Total 0 ml # Voids 3 1 # Bowel Movements 0 Result Diagram: 09/04/17 0835 09/05/17 0712 Imaging Last 72 hours Impressions Chest X-Ray 09/04/17 0825 Signed Impressions: Service Date/Time: Monday, September 04, 2017 08:35 - CONCLUSION: New minimal parenchymal changes right apex New from comparison study. Waldemar Mckeon MD FACR Other Results IMPRESSION: EGD 09/05/17 Esophagus patient has what looked look like mucosal tear, patient has significant nausea vomiting that's this could be Hailey-Pearson tear, she also has significant narrowing of the esophagus with thickening of the EG junction biopsy was done to rule out recurrent of esophageal cancer, dilation was not performed because of the tear in the mucosa and the EG junction Stomach normal except some thickening at the EG junction on retroflexion biopsy was done Duodenum normal Objective Remarks Physiical Exam General: thin elderly no apparent distress SKIN: Warm and dry. HEAD: Normocephalic. EYES: No scleral icterus. No injection or drainage. NECK: Supple, trachea midline. No JVD or lymphadenopathy. LYMPHATIC: No adenopathy. CARDIOVASCULAR: Regular rate and rhythm without murmurs. RESPIRATORY: Breath sounds equal bilaterally. No accessory muscle use. GASTROINTESTINAL: Abdomen soft, non-tender, nondistended. EXTREMITIES: No cyanosis, or edema. MUSCULOSKELETAL: muscle wasting. NEUROLOGICAL: .Awake, alert, and oriented x3. Medications and IVs Current Medications Medications (Trade) Dose Ordered Sig/Lauro Route Start Time Stop Time Status Last Admin Sodium Chloride 1,000 ml @ 75 mls/hr [id number] IV 09/04/17 15:00 09/05/17 17:23 (NS Flush) 2 ml UNSCH PRN IV FLUSH 09/04/17 14:15 (NS Flush) 2 ml BID IV FLUSH 09/04/17 21:00 09/05/17 10:35 (Tylenol) 650 mg Q4H PRN PO 09/04/17 14:15 (Zofran Inj) 4 mg Q6H PRN IVP 09/04/17 14:15 (Heparin Inj) 5,000 units Q12H SQ 09/04/17 15:00 09/06/17 03:16 (Narcan Inj) 0.4 mg UNSCH PRN IV PUSH 09/04/17 14:15 (Arabella-Colace) 1 tab BID PO 09/04/17 21:00 09/06/17 09:29 (Milk Of Magnesia Liq) 30 ml Q12H PRN PO 09/04/17 14:15 (Senokot) 17.2 mg Q12H PRN PO 09/04/17 14:15 (Dulcolax Supp) 10 mg DAILY PRN RECTAL 09/04/17 14:15 (Lactulose Liq) 30 ml DAILY PRN PO 09/04/17 14:15 Assessment and Plan Problem List: (1) Esophageal adenocarcinoma ICD Codes: C15.9 - Malignant neoplasm of esophagus, unspecified Status: Acute Plan: Oncology following, biopsy pending. (2) Esophageal obstruction ICD Codes: K22.2 - Esophageal obstruction Status: Acute Plan: Clear liq diet, Ensure added for increase of caloric intake Discharge Planning Likely home tomorrow if cleared by oncology and speech, tolerating thin fluids. Yanet Shepherd Sep 06, 2017 11:22
--- NOTE | 2017-09-06 12:29 | HHI.GIFU ---
Subjective Remarks Pt resting in bed. family at bedside. No GI complaints. Wants a beer. (Cata Andujar) Objective Vitals I&O Vital Signs Date Time Temp Pulse Resp B/P (MAP) Pulse Ox O2 Delivery O2 Flow Rate FiO2 09/06/17 11:03 97.6 65 16 116/57 (76) 96 09/06/17 08:00 Room Air 09/06/17 08:00 97.8 70 19 107/59 (75) 96 09/06/17 07:14 98.3 68 16 117/55 (75) 96 09/06/17 04:30 98.5 69 18 115/57 (76) 97 09/06/17 00:00 98.4 76 18 108/56 (73) 97 09/05/17 20:00 98.2 74 18 99/54 (69) 98 09/05/17 19:45 98 Room Air 09/05/17 16:03 98.0 64 18 129/61 (83) 98 09/05/17 16:00 Room Air 09/05/17 13:00 98.0 67 16 117/63 (81) 97 I/O 09/05/17 09/05/17 09/05/17 09/06/17 09/06/17 09/06/17 07:00 15:00 23:00 07:00 15:00 23:00 Intake Total 1142 ml 200 ml 480 ml 120 ml Output Total 0 ml 300 ml 400 ml Balance 1142 ml 200 ml 180 ml -280 ml Intake Oral 0 ml 480 ml 120 ml IV Total 1142 ml Other 200 ml Output Urine Total 300 ml 400 ml Stool Total 0 ml # Voids 3 1 # Bowel Movements 0 Laboratory Laboratory Tests Test 09/06/17 06:07 Carcinoembryonic Antigen 4.2 Imaging Last Impressions Chest X-Ray 09/04/17 0825 Signed Impressions: Service Date/Time: Monday, September 04, 2017 08:35 - CONCLUSION: New minimal parenchymal changes right apex New from comparison study. Waldemar Mckeon MD FACR Physical Exam HEENT: PERRL; normocephalic; atraumatic; no jaundice. CHEST: CTA, diminished CARDIAC: RRR ABDOMEN: Soft, nondistended, nontender; no hepatosplenomegaly; bowel sounds are present in all four quadrants. EXTREMITIES: No clubbing, cyanosis, or edema. SKIN: Normal; no rash; no jaundice. 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 (Cata Andujar) Assessment and Plan Plan ASSESSMENT - dysphagia, weight loss - poss malignancy. 2-3 weeks difficulty swallowing, regurgitates solids and must drink liquids slowly. reportedly normal EGD 2016. recent PET scan suspicious for recurrent malignancy GE jxn. CT 06/2017 showing enlargement previously seen mass GE jxn. scheduled for EUS 09/20/17. lost 20lbs in last 3-4 wks 09/05/17 IMPRESSION: Esophagus patient has what looked look like mucosal tear, patient has significant nausea vomiting that's this could be Hailey-Pearson tear, she also has significant narrowing of the esophagus with thickening of the EG junction biopsy was done to rule out recurrent of esophageal cancer, dilation was not performed because of the tear in the mucosa and the EG junction Stomach normal except some thickening at the EG junction on retroflexion biopsy was done Duodenum normal 09/06/17 bx still pending. CEA 4.2. oncology following, GS following. Pt with no complaints. PLAN: add ensure clear with trays Await biopsy EUS for evaluation of the esophagus with EGD and dilation, next week as outpt supportive care pt seen by myself and Dr Lora and this note is on his behalf (Cata Andujar) Plan Patient seen and examined, agree with above note, he is feeling better, we will advance diet to pured diet, await biopsy results, EUS as an outpatient depending on the biopsy results (Marty Lora MD) Cata Andujar Sep 06, 2017 12:29 Marty Lora MD Sep 06, 2017 16:50
[2017-09-07] VITALS (7 sets, daily range): BP systolic 104–124; BP diastolic 55–62; PULSE 61–72; RESP 18–20; TEMP 97.3–99.4; O2SAT 95–100
[2017-09-07] MEDS: HEPARIN SODIUM - SQ 10,000 UNITS/ML VIAL SQ SCH ×2 (03:00→15:13)
[2017-09-07] MEDS: SODIUM CHLORIDE 0.9% FLUSH 10 ML FLUSH IV FLUSH SCH ×2 (08:27→20:56)
[2017-09-07] MEDS: DOCUSATE SODIUM 50 MG/SENNA 8.6 MG TAB PO SCH ×2 (08:27→20:56)
[2017-09-07] MEDS: SODIUM CHLOR 0.45% 1000 ML INJ 1,000 ML IV SCH ×2 (08:27→20:59)
--- NOTE | 2017-09-07 11:26 | HHI.GIFU ---
Subjective Remarks Pt resting in bed, arguing with . Asking for ensure. (Cata Andujar) Objective Vitals I&O Vital Signs Date Time Temp Pulse Resp B/P (MAP) Pulse Ox O2 Delivery O2 Flow Rate FiO2 09/07/17 08:00 Room Air 09/07/17 04:00 97.5 61 18 109/60 (76) 100 09/07/17 00:00 99.4 61 18 104/55 (71) 95 09/06/17 20:15 98 Room Air 09/06/17 20:00 98.7 62 18 104/58 (73) 97 09/06/17 16:00 98.2 61 19 116/56 (76) 97 09/06/17 16:00 Room Air 09/06/17 12:00 Room Air I/O 09/06/17 09/06/17 09/06/17 09/07/17 09/07/17 09/07/17 07:00 15:00 23:00 07:00 15:00 23:00 Intake Total 120 ml 1200 ml Output Total 400 ml Balance -280 ml 1200 ml Intake Oral 120 ml 1200 ml Output Urine Total 400 ml # Voids 1 3 3 Laboratory Laboratory Tests Test 09/04/17 08:35 09/05/17 07:12 09/06/17 06:07 White Blood Count 7.9 TH/MM3 Red Blood Count 4.11 MIL/MM3 Hemoglobin 13.6 GM/DL Hematocrit 39.9 % Mean Corpuscular Volume 97.2 FL Mean Corpuscular Hemoglobin 33.0 PG Mean Corpuscular Hemoglobin Concent 34.0 % Red Cell Distribution Width 13.2 % Platelet Count 199 TH/MM3 Mean Platelet Volume 7.8 FL Neutrophils (%) (Auto) 76.7 % Lymphocytes (%) (Auto) 14.9 % Monocytes (%) (Auto) 6.7 % Eosinophils (%) (Auto) 1.4 % Basophils (%) (Auto) 0.3 % Neutrophils # (Auto) 6.0 TH/MM3 Lymphocytes # (Auto) 1.2 TH/MM3 Monocytes # (Auto) 0.5 TH/MM3 Eosinophils # (Auto) 0.1 TH/MM3 Basophils # (Auto) 0.0 TH/MM3 CBC Comment DIFF FINAL Differential Comment Prothrombin Time 11.6 SEC Prothromb Time International Ratio 1.1 RATIO Activated Partial Thromboplast Time 27.0 SEC Blood Urea Nitrogen 16 MG/DL Creatinine 0.76 MG/DL Random Glucose 72 MG/DL Total Protein 6.4 GM/DL Albumin 2.9 GM/DL Calcium Level 9.0 MG/DL Alkaline Phosphatase 156 U/L Aspartate Amino Transf (AST/SGOT) 26 U/L Alanine Aminotransferase (ALT/SGPT) 23 U/L Total Bilirubin 0.6 MG/DL Sodium Level 134 MEQ/L Potassium Level 4.1 MEQ/L Chloride Level 100 MEQ/L Carbon Dioxide Level 26.2 MEQ/L Anion Gap 8 MEQ/L Estimat Glomerular Filtration Rate 98 ML/MIN Carcinoembryonic Antigen 4.2 NG/ML Imaging Last Impressions Chest X-Ray 09/04/17 0825 Signed Impressions: Service Date/Time: Monday, September 04, 2017 08:35 - CONCLUSION: New minimal parenchymal changes right apex New from comparison study. Waldemar Mckeon MD FACR Physical Exam HEENT: PERRL; normocephalic; atraumatic; no jaundice. CHEST: CTA, diminished CARDIAC: RRR ABDOMEN: Soft, nondistended, nontender; no hepatosplenomegaly; bowel sounds are present in all four quadrants. EXTREMITIES: No clubbing, cyanosis, or edema. SKIN: Normal; no rash; no jaundice. 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 (Cata Andujar [facility]) Assessment and Plan Plan ASSESSMENT - dysphagia, weight loss - poss malignancy. 2-3 weeks difficulty swallowing, regurgitates solids and must drink liquids slowly. reportedly normal EGD 2016. recent PET scan suspicious for recurrent malignancy GE jxn. CT 06/2017 showing enlargement previously seen mass GE jxn. scheduled for EUS 09/20/17. lost 20lbs in last 3-4 wks 09/05/17 IMPRESSION: Esophagus patient has what looked look like mucosal tear, patient has significant nausea vomiting that's this could be Hailey-Pearson tear, she also has significant narrowing of the esophagus with thickening of the EG junction biopsy was done to rule out recurrent of esophageal cancer, dilation was not performed because of the tear in the mucosa and the EG junction Stomach normal except some thickening at the EG junction on retroflexion biopsy was done Duodenum normal 09/06/17 bx still pending. CEA 4.2. oncology following, GS following. Pt with no complaints. 09/07/17 bx SQUAMOCOLUMNAR MUCOSA WITH MILDLY ACTIVE CHRONIC INFLAMMATION. pt wants ensure. PLAN - pureed diet - ensure - supportive care - outpt EUS? pt seen by myself and Dr Lora and this note is on his behalf (Cata Andujar) Plan Patient was seen and examined, agree with above note, blended diet, he denied any abdominal pain or any symptoms, will see how he tolerates a pured diet, if he tolerated well can be discharged home and follow-up as an outpatient for EUS (Marty Lora MD) Cata Andujar Sep 07, 2017 11:26 Marty Lora MD Sep 07, 2017 14:04
--- NOTE | 2017-09-07 14:21 | HHI.PR ---
Subjective Remarks Patient seen and examined. He has esophageal tear and problems swallowing, He has H/O esophageal cancer and recent biopsies are pending. Objective Vital Signs Date Time Temp Pulse Resp B/P (MAP) Pulse Ox O2 Delivery O2 Flow Rate FiO2 09/07/17 08:00 Room Air 09/07/17 04:00 97.5 61 18 109/60 (76) 100 09/07/17 00:00 99.4 61 18 104/55 (71) 95 09/06/17 20:15 98 Room Air 09/06/17 20:00 98.7 62 18 104/58 (73) 97 09/06/17 16:00 98.2 61 19 116/56 (76) 97 09/06/17 16:00 Room Air I/O 09/06/17 09/06/17 09/06/17 09/07/17 09/07/17 09/07/17 07:00 15:00 23:00 07:00 15:00 23:00 Intake Total 120 ml 1200 ml Output Total 400 ml Balance -280 ml 1200 ml Intake Oral 120 ml 1200 ml Output Urine Total 400 ml # Voids 1 3 3 Result Diagram: 09/04/17 0835 09/05/17 0712 Imaging Last Impressions Chest X-Ray 09/04/17 0825 Signed Impressions: Service Date/Time: Monday, September 04, 2017 08:35 - CONCLUSION: New minimal parenchymal changes right apex New from comparison study. Waldemar Mckeon MD FACR Procedures EGD Objective Remarks HEENT - Afebrile with AT/NC head Lungs - CTA CV - RRR without rub or gallop Abd - Soft and nontender with active BS Neuro - alert and oriented Medications and IVs Current Medications Medications (Trade) Dose Ordered Sig/Lauro Route Start Time Stop Time Status Last Admin Sodium Chloride 1,000 ml @ 75 mls/hr [id number] IV 09/04/17 15:00 09/07/17 08:27 (NS Flush) 2 ml UNSCH PRN IV FLUSH 09/04/17 14:15 (NS Flush) 2 ml BID IV FLUSH 09/04/17 21:00 09/05/17 10:35 (Tylenol) 650 mg Q4H PRN PO 09/04/17 14:15 (Zofran Inj) 4 mg Q6H PRN IVP 09/04/17 14:15 (Heparin Inj) 5,000 units Q12H SQ 09/04/17 15:00 09/07/17 03:00 (Narcan Inj) 0.4 mg UNSCH PRN IV PUSH 09/04/17 14:15 (Arabella-Colace) 1 tab BID PO 09/04/17 21:00 09/06/17 09:29 (Milk Of Magnesia Liq) 30 ml Q12H PRN PO 09/04/17 14:15 (Senokot) 17.2 mg Q12H PRN PO 09/04/17 14:15 (Dulcolax Supp) 10 mg DAILY PRN RECTAL 09/04/17 14:15 (Lactulose Liq) 30 ml DAILY PRN PO 09/04/17 14:15 Assessment and Plan Problem List: (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 May need resection vs palliative care (2) Esophageal obstruction ICD Codes: K22.2 - Esophageal obstruction Status: Acute Plan: Only tolerating liquids. Discussed feeding tube but awaiting bx results for now given his H/O esophageal cancer Discussed Condition With Patient and spouse Discharge Planning Home Chaim Yoo Sep 07, 2017 14:21
--- NOTE | 2017-09-07 19:00 | HHI.PR ---
Subjective Subjective Notes No complaints; patient attempting to eat as much as possible with pureed diet Objective Vitals/I&O Vital Signs Date Time Temp Pulse Resp B/P (MAP) Pulse Ox O2 Delivery O2 Flow Rate FiO2 09/07/17 12:02 98.0 62 18 112/60 (77) 95 09/07/17 08:00 Room Air Abdomen: Non-distended A/P Problem List: (1) Esophageal obstruction ICD Codes: K22.2 - Esophageal obstruction Status: Acute (2) History of esophageal cancer ICD Codes: Z85.01 - Personal history of malignant neoplasm of esophagus Status: Acute (3) Esophageal adenocarcinoma ICD Codes: C15.9 - Malignant neoplasm of esophagus, unspecified Status: Chronic Assessment and Plan 82 year old with 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 Menon will see again Saturday, 09/09 Harry Calderon MD Sep 07, 2017 19:00
[2017-09-08] VITALS: BP 102/50; PULSE 67; RESP 20; TEMP 97.6; O2SAT 98
[2017-09-08] MEDS: HEPARIN SODIUM - SQ 10,000 UNITS/ML VIAL SQ SCH ×2 (03:16→15:38)
[2017-09-08 04:00] VITALS: BP 100/63; PULSE 62; RESP 18; TEMP 97.6; O2SAT 96
[2017-09-08 08:00] VITALS: BP 120/67; PULSE 75; RESP 20; TEMP 97.2; O2SAT 96
[2017-09-08] MEDS: DOCUSATE SODIUM 50 MG/SENNA 8.6 MG TAB PO SCH ×2 (08:26→21:10)
[2017-09-08] MEDS: SODIUM CHLORIDE 0.9% FLUSH 10 ML FLUSH IV FLUSH SCH ×2 (08:27→21:10)
--- NOTE | 2017-09-08 10:14 | HHI.PR ---
cc: Brandon Davila MD Subjective Subjective Notes no acute issues, tolerating diet Objective Vitals/I&O Vital Signs Date Time Temp Pulse Resp B/P (MAP) Pulse Ox O2 Delivery O2 Flow Rate FiO2 09/08/17 08:00 97.2 75 20 120/67 (84) 96 09/07/17 20:30 Room Air Lungs: Clear Abdomen: Non-tender A/P Problem List: (1) Esophageal obstruction ICD Codes: K22.2 - Esophageal obstruction Status: Acute (2) History of esophageal cancer ICD Codes: Z85.01 - Personal history of malignant neoplasm of esophagus Status: Acute (3) Esophageal adenocarcinoma ICD Codes: C15.9 - Malignant neoplasm of esophagus, unspecified Status: Chronic Assessment and Plan 82 year old with 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 Menon will see again Saturday, 09/09 Brandon Davila MD Sep 08, 2017 10:14
[2017-09-08 12:00] VITALS: BP 116/56; PULSE 78; RESP 20; TEMP 97.5; O2SAT 97
[2017-09-08] MEDS: SODIUM CHLOR 0.45% 1000 ML INJ 1,000 ML IV SCH (12:10)
--- NOTE | 2017-09-08 12:19 | HHI.GIFU ---
Subjective Remarks Pt is resting in bed, tolerating regular diet okay but has to be careful and take his time. No nausea, vomiting or abd pain (Maisha Ross) Objective Vitals I&O Vital Signs Date Time Temp Pulse Resp B/P (MAP) Pulse Ox O2 Delivery O2 Flow Rate FiO2 09/08/17 08:00 Room Air 09/08/17 08:00 97.2 75 20 120/67 (84) 96 09/08/17 04:00 97.6 62 18 100/63 (75) 96 09/08/17 00:00 97.6 67 20 102/50 (67) 98 09/07/17 20:30 Room Air 09/07/17 20:00 97.7 67 20 115/55 (75) 97 09/07/17 16:02 97.4 63 18 124/62 (82) 98 I/O 09/07/17 09/07/17 09/07/17 09/08/17 09/08/17 09/08/17 07:00 15:00 23:00 07:00 15:00 23:00 Intake Total 380 ml Output Total 800 ml Balance -420 ml Intake Oral 380 ml Output Urine Total 800 ml # Voids 3 2 # Bowel Movements 0 Imaging Last Impressions Chest X-Ray 09/04/17 0825 Signed Impressions: Service Date/Time: Monday, September 04, 2017 08:35 - CONCLUSION: New minimal parenchymal changes right apex New from comparison study. Waldemar Mckeon MD FACR Physical Exam HEENT: PERRL; normocephalic; atraumatic; no jaundice. CHEST: CTA, diminished CARDIAC: RRR ABDOMEN: Soft, nondistended, nontender; no hepatosplenomegaly; bowel sounds are present in all four quadrants. EXTREMITIES: No clubbing, cyanosis, or edema. SKIN: Normal; no rash; no jaundice. 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 (Maisha Ross) Assessment and Plan Plan ASSESSMENT - dysphagia, weight loss - poss malignancy. 2-3 weeks difficulty swallowing, regurgitates solids and must drink liquids slowly. reportedly normal EGD 2016. recent PET scan suspicious for recurrent malignancy GE jxn. CT 06/2017 showing enlargement previously seen mass GE jxn. scheduled for EUS 4/27/18. lost 20lbs in last 3-4 wks 09/05/17 IMPRESSION: Esophagus patient has what looked look like mucosal tear, patient has significant nausea vomiting that's this could be Hailey-Pearson tear, she also has significant narrowing of the esophagus with thickening of the EG junction biopsy was done to rule out recurrent of esophageal cancer, dilation was not performed because of the tear in the mucosa and the EG junction Stomach normal except some thickening at the EG junction on retroflexion biopsy was done Duodenum normal 09/06/17 bx still pending. CEA 4.2. oncology following, GS following. Pt with no complaints. 09/07/17 bx SQUAMOCOLUMNAR MUCOSA WITH MILDLY ACTIVE CHRONIC INFLAMMATION. pt wants ensure. 09/08/17 Pt doing good, tolerating diet okay. PLAN - pureed diet - ensure - supportive care - GS on the case, Dr. Menon suppose to see pt tomorrow and decide whether or not to have surgical resection - outpt EUS - GI will sign off - F/u with GI as an OP pt seen by myself and Dr Lora and this note is on his behalf (Maisha Ross) Plan Patient was seen and examined, agree with above note, patient is going to see Dr. Padilla in follow-up from surgery tomorrow, biopsy was negative for malignancy but that could be false negative and EUS should be done as an outpatient to examine the esophagus closely and possibly perform dilation at that time (Marty Lora MD) Maisha Ross Sep 08, 2017 12:19 Marty Lora MD Sep 08, 2017 15:27
--- NOTE | 2017-09-08 14:12 | HHI.PR ---
Subjective Remarks Patient seen and examined. He has esophageal tear and problems swallowing, He has H/O esophageal cancer and recent biopsies are pending. Surgery is to eval tomorrow and decide if surgery is indicated at this time. Objective Vital Signs Date Time Temp Pulse Resp B/P (MAP) Pulse Ox O2 Delivery O2 Flow Rate FiO2 09/08/17 08:00 Room Air 09/08/17 08:00 97.2 75 20 120/67 (84) 96 09/08/17 04:00 97.6 62 18 100/63 (75) 96 09/08/17 00:00 97.6 67 20 102/50 (67) 98 09/07/17 20:30 Room Air 09/07/17 20:00 97.7 67 20 115/55 (75) 97 09/07/17 16:02 97.4 63 18 124/62 (82) 98 I/O 09/07/17 09/07/17 09/07/17 09/08/17 09/08/17 09/08/17 07:00 15:00 23:00 07:00 15:00 23:00 Intake Total 380 ml Output Total 800 ml Balance -420 ml Intake Oral 380 ml Output Urine Total 800 ml # Voids 3 2 # Bowel Movements 0 Result Diagram: 09/04/17 0835 09/05/17 0712 Procedures EGD Objective Remarks HEENT - Afebrile with AT/NC head Lungs - CTA CV - RRR without rub or gallop Abd - Soft and nontender with active BS Neuro - alert and oriented Medications and IVs Current Medications Medications (Trade) Dose Ordered Sig/Lauro Route Start Time Stop Time Status Last Admin Sodium Chloride 1,000 ml @ 75 mls/hr [id number] IV 09/04/17 15:00 09/07/17 20:59 (NS Flush) 2 ml UNSCH PRN IV FLUSH 09/04/17 14:15 (NS Flush) 2 ml BID IV FLUSH 09/04/17 21:00 09/05/17 10:35 (Tylenol) 650 mg Q4H PRN PO 09/04/17 14:15 (Zofran Inj) 4 mg Q6H PRN IVP 09/04/17 14:15 (Heparin Inj) 5,000 units Q12H SQ 09/04/17 15:00 09/08/17 03:16 (Narcan Inj) 0.4 mg UNSCH PRN IV PUSH 09/04/17 14:15 (Arabella-Colace) 1 tab BID PO 09/04/17 21:00 09/08/17 08:26 (Milk Of Magnesia Liq) 30 ml Q12H PRN PO 09/04/17 14:15 (Senokot) 17.2 mg Q12H PRN PO 09/04/17 14:15 (Dulcolax Supp) 10 mg DAILY PRN RECTAL 09/04/17 14:15 (Lactulose Liq) 30 ml DAILY PRN PO 09/04/17 14:15 Assessment and Plan Problem List: (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 May need resection vs palliative care (2) Esophageal obstruction ICD Codes: K22.2 - Esophageal obstruction Status: Acute Plan: Only tolerating liquids. Discussed feeding tube but awaiting bx results for now given his H/O esophageal cancer. Surgery indicated they will F/U results tomorrow and decide about need for surgery. Assessment and Plan Esophageal cancer now with swallowing problems. Bx done and surgery to see tomorrow to decide about appropriate treatment. Discussed Condition With Patient Discharge Planning HOme Chaim Yoo Sep 08, 2017 14:12
[2017-09-08 16:00] VITALS: BP 95/51; PULSE 70; RESP 20; TEMP 97.8; O2SAT 96
[2017-09-08 20:00] VITALS: BP 96/54; PULSE 67; RESP 18; TEMP 98.2; O2SAT 97
[2017-09-09] VITALS: BP 95/51; PULSE 62; RESP 18; TEMP 98.5; O2SAT 96
[2017-09-09] MEDS: SODIUM CHLOR 0.45% 1000 ML INJ 1,000 ML IV SCH ×2 (01:40→14:36)
[2017-09-09] MEDS: HEPARIN SODIUM - SQ 10,000 UNITS/ML VIAL SQ SCH ×2 (02:37→14:38)
[2017-09-09 04:00] VITALS: BP 103/52; PULSE 67; RESP 18; TEMP 98.1; O2SAT 95
[2017-09-09 08:00] VITALS: BP 103/55; PULSE 66; RESP 20; TEMP 97.8; O2SAT 95
[2017-09-09] MEDS: SODIUM CHLORIDE 0.9% FLUSH 10 ML FLUSH IV FLUSH SCH ×2 (08:26→21:12)
[2017-09-09] MEDS: DOCUSATE SODIUM 50 MG/SENNA 8.6 MG TAB PO SCH ×2 (08:26→21:00)
--- NOTE | 2017-09-09 09:21 | HHI.PR ---
Subjective Remarks reports no complaints, tolerating pureed diet, does not care for food. Spouse in room. Objective Vital Signs Date Time Temp Pulse Resp B/P (MAP) Pulse Ox O2 Delivery O2 Flow Rate FiO2 09/09/17 04:00 98.1 67 18 103/52 (69) 95 09/09/17 00:00 98.5 62 18 95/51 (66) 96 09/08/17 20:00 Room Air 09/08/17 20:00 98.2 67 18 96/54 (68) 97 09/08/17 16:00 97.8 70 20 95/51 (66) 96 09/08/17 12:00 97.5 78 20 116/56 (76) 97 I/O 09/08/17 09/08/17 09/08/17 09/09/17 09/09/17 09/09/17 07:00 15:00 23:00 07:00 15:00 23:00 Intake Total 480 ml 240 ml Balance 480 ml 240 ml Intake Oral 480 ml 240 ml # Voids 2 5 2 # Bowel Movements 0 0 Result Diagram: 09/05/17 0712 Procedures EGD Objective Remarks Physical Exam General: thin elderly no apparent distress SKIN: Warm and dry. HEAD: Normocephalic. EYES: No scleral icterus. No injection or drainage. NECK: Supple, trachea midline. No JVD or lymphadenopathy. LYMPHATIC: No adenopathy. CARDIOVASCULAR: Regular rate and rhythm without murmurs. RESPIRATORY: Breath sounds equal bilaterally. No accessory muscle use. GASTROINTESTINAL: Abdomen soft, non-tender, nondistended. EXTREMITIES: No cyanosis, or edema. MUSCULOSKELETAL: muscle wasting. NEUROLOGICAL: .Awake, alert, and oriented x3. Medications and IVs Current Medications Medications (Trade) Dose Ordered Sig/Lauro Route Start Time Stop Time Status Last Admin Sodium Chloride 1,000 ml @ 75 mls/hr [id number] IV 09/04/17 15:00 09/07/17 20:59 (NS Flush) 2 ml UNSCH PRN IV FLUSH 09/04/17 14:15 (NS Flush) 2 ml BID IV FLUSH 09/04/17 21:00 09/09/17 08:26 (Tylenol) 650 mg Q4H PRN PO 09/04/17 14:15 (Zofran Inj) 4 mg Q6H PRN IVP 4/11/18 14:15 (Heparin Inj) 5,000 units Q12H SQ 09/04/17 15:00 09/09/17 02:37 (Narcan Inj) 0.4 mg UNSCH PRN IV PUSH 09/04/17 14:15 (Arabella-Colace) 1 tab BID PO 09/04/17 21:00 09/09/17 08:26 (Milk Of Magnesia Liq) 30 ml Q12H PRN PO 09/04/17 14:15 (Senokot) 17.2 mg Q12H PRN PO 09/04/17 14:15 (Dulcolax Supp) 10 mg DAILY PRN RECTAL 09/04/17 14:15 (Lactulose Liq) 30 ml DAILY PRN PO 09/04/17 14:15 Assessment and Plan Problem List: (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 (2) Esophageal obstruction ICD Codes: K22.2 - Esophageal obstruction Status: Acute Plan: Tolerating pureed diet, awaiting to be seen surgery today. Discharge Planning Biopsy pending, scheduled to be seen by surgery today for further treatment plan. Yanet Shepherd Sep 09, 2017 09:21
[2017-09-09 12:00] VITALS: BP 107/56; PULSE 68; RESP 20; TEMP 97.4; O2SAT 97
[2017-09-09 12:35] LABS: AUTOMATED NEUTROPHIL # 5.6 TH/MM3 (1.8-7.7); BASOPHIL % 0.4 % (0.0-2.0); EOSINOPHIL # 0.1 TH/MM3 (0-0.4); EOSINOPHIL % 1.9 % (0.0-4.0); HEMATOCRIT 37.3 % (39.0-51.0); HEMOGLOBIN 12.8 GM/DL (13.0-17.0); LYMPH % 17.3 % (9.0-44.0); LYMPHOCYTE # 1.4 TH/MM3 (1.0-4.8); MEAN CELL VOLUME 96.1 FL (80.0-100.0); MEAN CORPUSCULAR HGB CONC 34.3 % (32.0-36.0); MONO % 9.2 % (0.0-8.0); MONOCYTE # 0.7 TH/MM3 (0-0.9); NEUT % 71.2 % (16.0-70.0); PLATELET COUNT 166 TH/MM3 (150-450); RED BLOOD COUNT 3.88 MIL/MM3 (4.50-5.90); RED CELL DISTRIBUTION WIDTH 12.7 % (11.6-17.2); WHITE BLOOD COUNT 7.8 TH/MM3 (4.0-11.0)
[2017-09-09 12:48] LABS: BICARBONATE 31.7 MEQ/L (21.0-32.0); CALCIUM 9.1 MG/DL (8.5-10.1); CREATININE 0.72 MG/DL (0.60-1.30)
[2017-09-09 16:00] VITALS: BP 113/54; PULSE 66; RESP 20; TEMP 97.3; O2SAT 98
[2017-09-09 20:00] VITALS: BP 96/53; PULSE 67; RESP 20; TEMP 97.6; O2SAT 97
[2017-09-10] MEDS: SODIUM CHLOR 0.45% 1000 ML INJ 1,000 ML IV SCH ×2 (04:20→15:09)
[2017-09-10] MEDS ORDERED: SODIUM CHLORID 0.9% 500 ML IV PRN (05:15)
[2017-09-10] MEDS ORDERED: POVIDONE IODINE 5% (ANTISEPSIS KIT) 4 APPLICATIONS EACH NARE PRN (05:15)
[2017-09-10] MEDS ORDERED: CHLORHEXIDINE GLUCONATE 2 % 1 PACK (2 CLOTHS) TOPICAL PRN (05:15)
[2017-09-10] MEDS ORDERED: LACTATED RINGER'S 1000 ML IV PRN (05:15)
[2017-09-10 08:00] VITALS: BP 102/55; PULSE 59; RESP 20; TEMP 97.8; O2SAT 95
[2017-09-10] MEDS: DOCUSATE SODIUM 50 MG/SENNA 8.6 MG TAB PO SCH ×2 (08:03→21:25)
[2017-09-10] MEDS: SODIUM CHLORIDE 0.9% FLUSH 10 ML FLUSH IV FLUSH SCH ×2 (08:03→21:25)
--- NOTE | 2017-09-10 09:16 | HHI.PR ---
Subjective Remarks reports no complaints, NPO for feeding tube placement this afternoon. Objective Vital Signs Date Time Temp Pulse Resp B/P (MAP) Pulse Ox O2 Delivery O2 Flow Rate FiO2 09/10/17 08:08 Room Air 09/09/17 20:00 Room Air 09/09/17 20:00 97.6 67 20 96/53 (67) 97 09/09/17 16:00 97.3 66 20 113/54 (73) 98 09/09/17 12:00 97.4 68 20 107/56 (73) 97 09/09/17 09:39 Room Air I/O 09/09/17 09/09/17 09/09/17 09/10/17 09/10/17 09/10/17 06:59 14:59 22:59 06:59 14:59 22:59 Intake Total 240 ml 480 ml Balance 240 ml 480 ml Intake Oral 240 ml 480 ml # Voids 2 5 # Bowel Movements 0 1 Result Diagram: 09/09/17 1122 09/09/17 1122 Procedures EGD on 09/06/17 Objective Remarks Physical Exam General: thin elderly no apparent distress SKIN: Warm and dry. HEAD: Normocephalic. EYES: No scleral icterus. No injection or drainage. NECK: Supple, trachea midline. No JVD or lymphadenopathy. LYMPHATIC: No adenopathy. CARDIOVASCULAR: Regular rate and rhythm without murmurs. RESPIRATORY: Breath sounds equal bilaterally. No accessory muscle use. GASTROINTESTINAL: Abdomen soft, non-tender, nondistended. EXTREMITIES: No cyanosis, or edema. MUSCULOSKELETAL: muscle wasting. NEUROLOGICAL: .Awake, alert, and oriented x3. Medications and IVs Current Medications Medications (Trade) Dose Ordered Sig/Lauro Route Start Time Stop Time Status Last Admin Sodium Chloride 1,000 ml @ 75 mls/hr [id number] IV 09/04/17 15:00 09/07/17 20:59 (NS Flush) 2 ml UNSCH PRN IV FLUSH 09/04/17 14:15 (NS Flush) 2 ml BID IV FLUSH 09/04/17 21:00 09/10/17 08:03 (Tylenol) 650 mg Q4H PRN PO 09/04/17 14:15 (Zofran Inj) 4 mg Q6H PRN IVP 09/04/17 14:15 (Narcan Inj) 0.4 mg UNSCH PRN IV PUSH 09/04/17 14:15 (Arabella-Colace) 1 tab BID PO 09/04/17 21:00 09/09/17 08:26 (Milk Of Magnesia Liq) 30 ml Q12H PRN PO 09/04/17 14:15 (Senokot) 17.2 mg Q12H PRN PO 09/04/17 14:15 (Dulcolax Supp) 10 mg DAILY PRN RECTAL 09/04/17 14:15 (Lactulose Liq) 30 ml DAILY PRN PO 09/04/17 14:15 (Heparin Inj) 5,000 units Q12H SQ 09/10/17 20:00 Lactated Ringer's 1,000 ml @ 30 mls/hr Q24H PRN IV 09/10/17 05:15 09/13/17 05:14 Sodium Chloride 500 ml @ 30 mls/hr [id number] PRN IV 09/10/17 05:15 09/13/17 05:14 (Betadine 5% Antisepsis Kit) 1 applic SENIOR ORACLE DBA PRN EACH NARE 09/10/17 05:15 09/13/17 05:14 (Chlorhexidine 2% Cloth) 3 pack SENIOR [employer]ACLE DBA PRN TOPICAL 09/10/17 05:15 09/13/17 05:14 Assessment and Plan Problem List: (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 (2) Esophageal obstruction ICD Codes: K22.2 - Esophageal obstruction Status: Acute Plan: NPO for feeding tube placement Discharge Planning Home in am if no complications. Yanet Shepherd Sep 10, 2017 09:16
[2017-09-10] MEDS ORDERED: BUPIVACAINE/EPINEPHRINE 0.25% 50 ML VIAL ONE (10:36)
[2017-09-10] MEDS ORDERED: PHENYLEPH/NS 1000 MCG/10 ML SYR IV ONE (12:00)
[2017-09-10] MEDS ORDERED: NEOSTIGMINE 5 MG/5 ML SYRINGE IV PUSH ONE (12:00)
[2017-09-10] MEDS ORDERED: LIDOCAINE HCL 1% PF 5 ML SYRINGE OTHER ONE (12:00)
[2017-09-10] MEDS ORDERED: LACTATED RINGER'S 1000 ML INJ 1,000 ML IV ONE (12:00)
[2017-09-10] MEDS ORDERED: ePHEDrine/NS 25 MG/5 ML SYRINGE IV ONE (12:00)
[2017-09-10] MEDS ORDERED: PROPOFOL 200 MG/20 ML AMP IV ONE (12:00)
[2017-09-10] MEDS ORDERED: ONDANSETRON HCL 4 MG/2 ML VIAL IV PUSH ONE (12:00)
[2017-09-10] MEDS ORDERED: ROCURONIUM INJ 50 MG/5 ML SYRINGE IV PUSH ONE (12:00)
[2017-09-10] MEDS ORDERED: GLYCOPYRROLATE 1 MG/5 ML SYRINGE IV PUSH ONE (12:00)
[2017-09-10] MEDS ORDERED: KETOROLAC TROMETHAMINE 30 MG/ML (IVP) VIAL IV PUSH PRN (12:30)
[2017-09-10] MEDS ORDERED: DO NOT ADM ANY ANTICOAGULANT DRUGS PRN (12:40)
--- NOTE | 2017-09-10 13:01 | MP ---
cc: Shola Menon MD DATE OF OPERATION: 09/10/2017 PREOPERATIVE DIAGNOSES: 1. History of squamous cell carcinoma of the esophagus, status post chemoradiation. 2. Esophageal stricture with associated Hailey-Pearson tear. 3. Protein and calorie malnutrition and unintended weight loss. POSTOPERATIVE DIAGNOSIS 1. History of squamous cell carcinoma of the esophagus, status post chemoradiation. 2. Esophageal stricture with associated Hailey-Pearson tear. 3. Protein and calorie malnutrition and unintended weight loss. 4. Large bulky tumor in the body of the stomach concerning with carcinoma. ATTENDING SURGEON: Shola Menon MD CLINICAL DATA ABSTRACTOR: Staff. ANESTHESIA: General. PROCEDURES PERFORMED: 1. Staging and diagnostic laparoscopy. 2. Cytology. 3. No evidence of carcinomatosis. 4. Malignant-appearing ascites throughout the abdomen. 5. Liver with cirrhosis. INDICATION FOR PROCEDURE: The patient is an 82-year-old male with a history of squamous cell carcinoma, status post chemoradiation. The patient had a complete response and did not undergo surgery due to high risk for operative intervention. The patient unfortunately developed increasing weight loss and dysphagia. He was admitted to the hospital, underwent workup. An outpatient CT scan did show some hypermetabolic activity in the distal esophagus, concerning for possible recurrence. Upper endoscopy as an inpatient did show a distal esophageal stricture with Hailey-Pearson tear; therefore, no dilation was done and patient was unable to receive a PEG tube at that time. General surgery was consulted and surgical oncology was consulted for further evaluation for possible feeding tube placement surgically as well as staging laparoscopy for restaging of possible recurrent malignancy. The risks, benefits and alternatives to the procedure were discussed with the patient prior to the procedure and the patient agreed to undergo the procedure. DESCRIPTION OF PROCEDURE: After informed consent was obtained, the patient was taken to the operating room, placed in supine position, placed under general endotracheal anesthesia. The patient's abdomen was shaved, prepped and draped in sterile fashion. A timeout was performed. The abdomen was entered through a Alex-type technique just below the umbilicus. Local anesthetic was used at this site, as well as all port site, as well as the PEG tube site. We directly entered the abdomen under visualization and placed a 10 mm balloon trocar into the Alex periumbilical port site and insufflated the abdomen. We surveyed the abdomen with a 5 mm camera. There was no evidence of any complication from our entry. We then placed two 5 mm ports, both up in the left upper quadrant under visualization of the laparoscope. We were able to evaluate the abdomen. There was some plaque-type change of the peritoneum without any definitive mass. There was some significant ascites, appeared possibly malignant versus possible liver origin. There was significant cirrhotic-appearing liver. There is a large bulky gastric tumor in the body of the stomach. We did take a biopsy of the stomach tumor using laparoscopic EndoShears with Bovie electrocautery to take a small shave sample off of this bulky tumor, which appeared to be invading outside of the stomach wall. This was passed off for permanent processing. Cytology was also taken. We did irrigate out the abdomen with sterile saline until all suction was clear. We had excellent hemostasis. At this point in time, turned attention towards the gastrostomy tube placement. We did place a gastrostomy tube in the antrum of the stomach more towards the lesser curve to stay away from the gastroepiploic artery. This was placed with a laparoscopic kit and we used one of the port sites in the left upper quadrant as the site for the PEG tube. We placed the 4 T-bars without difficulty, pulling up the stomach towards the abdominal wall. We dilated, placed the needle central to the T-bars through the port site and the abdominal wall and into the stomach in the central portion of the T-bars. I passed the wire and dilated this with the kit provided. A 20-Azerbaijani gastrostomy tube was placed through the breakaway introducer assembly using Seldinger technique, placing a G-tube into the gastric lumen. We inflated the balloon with 10 mL of sterile water and pulled this up, and this was confirmed to be in the stomach. We irrigated and suctioned out and got gastric contents from our tube. Once we were satisfied this was in the stomach, we then pulled up and tied up our T-bars and tied this to the G-tube as well. Insufflation was discontinued. Ports were removed under visualization of the laparoscope and peritoneum was expressed. We closed the fascial site of the 10 port and the 5 port with 0 Vicryl suture. We closed the skin with 4-0 Monocryl and Dermabond. The patient was discontinued from anesthesia and taken to the PACU in stable condition. The patient tolerated the procedure well. No apparent complications. All counts were correct, and I was present and scrubbed for the entire procedure. MD LIZZY Subramanian/WON , 12:29 PM , 01:00 PM
[2017-09-10] MEDS: MORPHINE SULFATE 2 MG/ML SYRINGE IV PUSH PRN ×2 (15:42→21:24)
[2017-09-10 16:00] VITALS: BP 130/60; PULSE 66; RESP 20; TEMP 97.1; O2SAT 99
[2017-09-10 20:00] VITALS: BP 124/57; PULSE 72; RESP 18; TEMP 97.6; O2SAT 98
[2017-09-10] MEDS: HEPARIN SODIUM - SQ 10,000 UNITS/ML VIAL SQ SCH (21:25)
[2017-09-11] VITALS: BP 122/63; PULSE 67; RESP 18; TEMP 97.5; O2SAT 96
[2017-09-11] MEDS: MORPHINE SULFATE 2 MG/ML SYRINGE IV PUSH PRN ×7 (00:25→21:49)
[2017-09-11] MEDS: SODIUM CHLOR 0.45% 1000 ML INJ 1,000 ML IV SCH ×2 (04:55→20:20)
--- NOTE | 2017-09-11 06:59 | HHI.PR ---
Subjective Remarks Had feeding tube placed yesterday complains of pain 01/03. Objective Vital Signs Date Time Temp Pulse Resp B/P (MAP) Pulse Ox O2 Delivery O2 Flow Rate FiO2 09/11/17 00:00 97.5 67 18 122/63 (82) 96 09/10/17 23:55 Room Air 09/10/17 21:20 Room Air 09/10/17 20:00 97.6 72 18 124/57 (79) 98 09/10/17 16:00 97.1 66 20 130/60 (83) 99 09/10/17 13:45 97.5 75 22 110/53 (72) 95 Nasal Cannula 2 09/10/17 13:30 59 15 116/55 (75) 93 09/10/17 13:15 67 20 122/59 (80) 95 09/10/17 13:00 69 17 130/62 (84) 95 09/10/17 12:45 77 12 147/63 (91) 99 09/10/17 12:36 97.7 83 12 133/63 (86) 100 Simple Mask 6 09/10/17 08:08 Room Air 09/10/17 08:00 97.8 59 20 102/55 (71) 95 I/O 09/10/17 09/10/17 09/10/17 09/11/17 09/11/17 09/11/17 07:00 15:00 23:00 07:00 15:00 23:00 Intake Total 800 ml 0 ml 999 ml Output Total 10 ml 50 ml Balance 790 ml 0 ml 949 ml Intake Oral 0 ml IV Total 999 ml Other 800 ml Drainage Total 50 ml Estimated Blood Loss 10 ml # Voids 5 2 # Bowel Movements 0 0 Result Diagram: 09/09/17 1122 09/09/17 1122 Procedures EGD on 09/06/17 Objective Remarks Physical Exam General: thin elderly in no distress SKIN: Warm and dry. HEAD: Normocephalic. EYES: No scleral icterus. No injection or drainage. NECK: Supple, trachea midline. No JVD or lymphadenopathy. LYMPHATIC: No adenopathy. CARDIOVASCULAR: Regular rate and rhythm without murmurs. RESPIRATORY: Breath sounds equal bilaterally. No accessory muscle use. GASTROINTESTINAL: Abdomen soft, nondistended, very tender, peg tube in place EXTREMITIES: No cyanosis, or edema. MUSCULOSKELETAL: muscle wasting. NEUROLOGICAL: .Awake, alert, and oriented x3. Medications and IVs Current Medications Medications (Trade) Dose Ordered Sig/Lauro Route Start Time Stop Time Status Last Admin Sodium Chloride 1,000 ml @ 75 mls/hr [id number] IV 09/04/17 15:00 09/11/17 04:55 (NS Flush) 2 ml UNSCH PRN IV FLUSH 09/04/17 14:15 09/11/17 00:26 (NS Flush) 2 ml BID IV FLUSH 09/04/17 21:00 09/10/17 21:25 (Tylenol) 650 mg Q4H PRN PO 09/04/17 14:15 (Zofran Inj) 4 mg Q6H PRN IVP 09/04/17 14:15 (Narcan Inj) 0.4 mg UNSCH PRN IV PUSH 09/04/17 14:15 (Arabella-Colace) 1 tab BID PO 09/04/17 21:00 09/10/17 21:25 (Milk Of Magnesia Liq) 30 ml Q12H PRN PO 09/04/17 14:15 (Senokot) 17.2 mg Q12H PRN PO 09/04/17 14:15 (Dulcolax Supp) 10 mg DAILY PRN RECTAL 09/04/17 14:15 (Lactulose Liq) 30 ml DAILY PRN PO 09/04/17 14:15 (Heparin Inj) 5,000 units Q12H SQ 09/10/17 20:00 09/10/17 21:25 Lactated Ringer's 1,000 ml @ 30 mls/hr Q24H PRN IV 09/10/17 05:15 09/13/17 05:14 Sodium Chloride 500 ml @ 30 mls/hr [id number] PRN IV 09/10/17 05:15 09/13/17 05:14 (Betadine 5% Antisepsis Kit) 1 applic EXECUTIVE OFFICER [employer] TEAM PRN EACH NARE 09/10/17 05:15 09/13/17 05:14 (Chlorhexidine 2% Cloth) 3 pack EXECUTIVE OFFICER [employer] TEAM PRN TOPICAL 09/10/17 05:15 09/13/17 05:14 (Morphine Inj) 2 mg Q3H PRN IV PUSH 09/10/17 13:45 09/11/17 06:54 (Toradol Inj) 15 mg Q6H PRN IV PUSH 09/10/17 12:30 09/15/17 12:29 Miscellaneous Information ALL NURSING DEPARTME... UNSCH PRN .XX 09/10/17 12:40 09/11/17 12:39 Assessment and Plan Problem List: (1) Esophageal obstruction ICD Codes: K22.2 - Esophageal obstruction Status: Acute Plan: peg tube place, complain of pain 01/03 on IV MS. (2) History of esophageal cancer ICD Codes: Z85.01 - Personal history of malignant neoplasm of esophagus Status: Acute Discharge Planning Home with [facility] when pain controlled Yanet Shepherd Sep 11, 2017 06:59
--- NOTE | 2017-09-11 07:02 | HHI.FF ---
Face to Face Verification Physical Therapy Instructions: New peg tube Home Health Nursing Instructions: New peg tube, will need help with care of feeding tube I have seen patient Carlos Manuel Marie on 09/11/17. My clinical findings support the need for the requested home health care services because: I certify that my clinical findings support that this patient is homebound because: Yanet Shepherd Sep 11, 2017 07:02
[2017-09-11 08:00] VITALS: BP 109/56; PULSE 66; RESP 17; TEMP 97.9; O2SAT 97
[2017-09-11] MEDS: SODIUM CHLORIDE 0.9% FLUSH 10 ML FLUSH IV FLUSH SCH ×2 (09:00→21:49)
[2017-09-11] MEDS: DOCUSATE SODIUM 50 MG/SENNA 8.6 MG TAB PO SCH ×2 (09:00→21:49)
--- NOTE | 2017-09-11 09:01 | PD.ONC.PN ---
Subjective Subjective Remarks complains of mild abd discomfort near G tube. Objective Data Date Time Temp Pulse Resp B/P (MAP) Pulse Ox O2 Delivery O2 Flow Rate FiO2 09/11/17 00:00 97.5 67 18 122/63 (82) 96 09/10/17 23:55 Room Air 09/10/17 21:20 Room Air 09/10/17 20:00 97.6 72 18 124/57 (79) 98 09/10/17 16:00 97.1 66 20 130/60 (83) 99 09/10/17 13:45 97.5 75 22 110/53 (72) 95 Nasal Cannula 2 09/10/17 13:30 59 15 116/55 (75) 93 09/10/17 13:15 67 20 122/59 (80) 95 09/10/17 13:00 69 17 130/62 (84) 95 09/10/17 12:45 77 12 147/63 (91) 99 09/10/17 12:36 97.7 83 12 133/63 (86) 100 Simple Mask 6 09/11/17 09/11/17 09/11/17 07:00 15:00 23:00 Intake Total 999 ml Output Total 50 ml Balance 949 ml Result Diagram: 09/09/17 1122 09/09/17 1122 Administered Medications Medications (Trade) Dose Ordered Sig/Lauro Route PRN Reason Start Time Stop Time Status Last Admin Dose Admin Sodium Chloride 1,000 ml @ 75 mls/hr [id number] IV 09/04/17 15:00 09/11/17 04:55 Sodium Chloride (NS Flush) 2 ml UNSCH PRN IV FLUSH FLUSH AFTER USING IV ACCESS 09/04/17 14:15 09/11/17 00:26 Sodium Chloride (NS Flush) 2 ml BID IV FLUSH 09/04/17 21:00 09/10/17 21:25 Senna/Docusate Sodium (Arabella-Colace) 1 tab BID PO 09/04/17 21:00 09/10/17 21:25 Heparin Sodium (Porcine) (Heparin Inj) 5,000 units Q12H SQ 09/10/17 20:00 09/10/17 21:25 Morphine Sulfate (Morphine Inj) 2 mg Q3H PRN IV PUSH PAIN SCALE 5 TO 10 09/10/17 13:45 09/11/17 06:54 Objective Remarks GENERAL: gaunt and has G tube. SKIN: Warm and dry. HEAD: Normocephalic. EYES: No scleral icterus. No injection or drainage. NECK: Supple, trachea midline. No JVD or lymphadenopathy. LYMPHATIC: No adenopathy. CARDIOVASCULAR: Regular rate and rhythm without murmurs. RESPIRATORY: Breath sounds equal bilaterally. No accessory muscle use. GASTROINTESTINAL: Abdomen soft, mild tenderness near G tube. EXTREMITIES: No cyanosis, or edema. MUSCULOSKELETAL: muscle wasting NEUROLOGICAL: No obvious focal deficit. Awake, alert, and oriented x3. PSYCHIATRIC: Appropriate mood and affect; insight and judgment normal. Assessment/Plan Assessment 1: I spoke with Dr. Menon and there was DEFINITE TUMOR on outside of stomach. Await path to see if squamous cell ( from esophagus) or adenocarcinoma- probable gastric cancer. I spoke with patient concerning options. option 1-hospice, option 2- chemotherapy and if excellent response and ascites does not reveal cancer then he could, although unlikely, become a candidate for surgery. After discussions with Dr. Menon, he is not a candidate for surgery presently. It is unlikely he will become a surgical candidate in future but one can always hold out hope. 2: He is painful and will need an increase in MS. Would not discharge home until it is clear that he is tolerating tube feedings and home care is in place. He may deteriorate over next month and if this takes place I will consult hospice but he does not want to do this now. Appreciate all the help. Humberto Pearson MD Sep 11, 2017 09:01
[2017-09-11] MEDS ORDERED: ACETAMINOPHEN 325MG/HYDROcodone 7.5MG/15ML UDC PO PRN (10:00)
[2017-09-11] MEDS: HEPARIN SODIUM - SQ 10,000 UNITS/ML VIAL SQ SCH ×2 (10:00→21:48)
--- NOTE | 2017-09-11 10:05 | HHI.FF ---
Face to Face Verification Diagnosis: (1) Esophageal obstruction Home Health Nursing Order: Wound care and dressing changes Nursing assessment with vital signs Instructions: 1/2 can Ensure 4 times daily through surgically placed gastrostomy tube Okay for thin clear liquids PO I have seen patient Carlos Manuel Marie on 09/11/17. My clinical findings support the need for the requested home health care services because: Limited ability to care for self I certify that my clinical findings support that this patient is homebound because: Post-op weakness Ellie Ferrera/Rehabilitation Inspector EMBEDDED SOFTWARE DESIGN ENGINEER Sep 11, 2017 10:05
--- NOTE | 2017-09-11 10:08 | HHI.PR ---
Subjective Subjective Notes Ambulating in room Painful Objective Vitals/I&O Vital Signs Date Time Temp Pulse Resp B/P (MAP) Pulse Ox O2 Delivery O2 Flow Rate FiO2 09/11/17 08:00 97.9 66 17 109/56 (73) 97 09/10/17 23:55 Room Air 09/10/17 13:45 2 Cardiovascular: Regular Lungs: Clear Abdomen: Other (lap sites c/d/i; G tube ----removed collection bag and clamped ) Extremities: No edema A/P Problem List: (1) Esophageal obstruction ICD Codes: K22.2 - Esophageal obstruction Status: Acute (2) History of esophageal cancer ICD Codes: Z85.01 - Personal history of malignant neoplasm of esophagus Status: Acute (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 I reviewed and agree with the findings presented. I attest that I had a [id number] encounter with the patient on the same day, and personally performed and documented my assessment and findings in the medical record. s/p lap G-tube, dong well fu path continue pain control, ok to use tube Ellie FerreraP/Internal Controls Specialist CITRIX ENGINEER Sep 11, 2017 10:08 Shola Menon MD Sep 12, 2017 13:37
[2017-09-11 12:00] VITALS: BP 125/58; PULSE 73; RESP 16; TEMP 97.1; O2SAT 97
[2017-09-11 16:00] VITALS: BP 115/58; PULSE 71; RESP 18; TEMP 97.9; O2SAT 96
[2017-09-11 20:00] VITALS: BP 102/57; PULSE 71; RESP 15; TEMP 96.8; O2SAT 96
[2017-09-12] VITALS (8 sets, daily range): BP systolic 100–129; BP diastolic 55–61; PULSE 70–87; RESP 16–20; TEMP 95.6–98.1; O2SAT 93–97
[2017-09-12] MEDS: MORPHINE SULFATE 2 MG/ML SYRINGE IV PUSH PRN ×3 (08:02→18:20)
[2017-09-12] MEDS: SODIUM CHLORIDE 0.9% FLUSH 10 ML FLUSH IV FLUSH SCH ×2 (08:02→21:00)
[2017-09-12] MEDS: DOCUSATE SODIUM 50 MG/SENNA 8.6 MG TAB PO SCH ×2 (08:02→21:00)
[2017-09-12] MEDS: HEPARIN SODIUM - SQ 10,000 UNITS/ML VIAL SQ SCH ×2 (08:02→21:23)
--- NOTE | 2017-09-12 08:37 | HHI.PR ---
Subjective Remarks Still requiring IV MS for pain Bolus have not been started Objective Vital Signs Date Time Temp Pulse Resp B/P (MAP) Pulse Ox O2 Delivery O2 Flow Rate FiO2 09/12/17 08:05 98.1 73 17 111/55 (73) 94 09/12/17 04:00 97.8 73 17 118/59 (78) 95 09/12/17 00:00 98.1 84 18 129/61 (83) 93 09/11/17 21:54 16 09/11/17 20:15 Room Air 09/11/17 20:00 96.8 71 15 102/57 (72) 96 09/11/17 16:00 Room Air 09/11/17 16:00 97.9 71 18 115/58 (77) 96 09/11/17 12:00 Room Air 09/11/17 12:00 97.1 73 16 125/58 (80) 97 I/O 09/11/17 09/11/17 09/11/17 09/12/17 09/12/17 09/12/17 07:00 15:00 23:00 07:00 15:00 23:00 Intake Total 999 ml 240 ml 450 ml Output Total 50 ml Balance 949 ml 240 ml 450 ml Intake Oral 240 ml 450 ml IV Total 999 ml Drainage Total 50 ml # Voids 2 4 6 # Bowel Movements 0 Result Diagram: 09/09/17 1122 09/09/17 1122 Procedures EGD on 09/06/17 Objective Remarks Physical Exam General: thin elderly in no distress SKIN: Warm and dry. HEAD: Normocephalic. EYES: No scleral icterus. No injection or drainage. NECK: Supple, trachea midline. No JVD or lymphadenopathy. LYMPHATIC: No adenopathy. CARDIOVASCULAR: Regular rate and rhythm without murmurs. RESPIRATORY: Breath sounds equal bilaterally. No accessory muscle use. GASTROINTESTINAL: Abdomen soft, nondistended, very tender, peg tube in place EXTREMITIES: No cyanosis, or edema. MUSCULOSKELETAL: muscle wasting. NEUROLOGICAL: .Awake, alert, and oriented x3. Medications and IVs Current Medications Medications (Trade) Dose Ordered Sig/Lauro Route Start Time Stop Time Status Last Admin Sodium Chloride 1,000 ml @ 75 mls/hr [id number] IV 09/04/17 15:00 09/11/17 04:55 (NS Flush) 2 ml UNSCH PRN IV FLUSH 09/04/17 14:15 09/11/17 00:26 (NS Flush) 2 ml BID IV FLUSH 09/04/17 21:00 09/12/17 08:02 (Tylenol) 650 mg Q4H PRN PO 09/04/17 14:15 (Zofran Inj) 4 mg Q6H PRN IVP 09/04/17 14:15 (Narcan Inj) 0.4 mg UNSCH PRN IV PUSH 09/04/17 14:15 (Arabella-Colace) 1 tab BID PO 09/04/17 21:00 09/12/17 08:02 (Milk Of Magnesia Liq) 30 ml Q12H PRN PO 09/04/17 14:15 (Senokot) 17.2 mg Q12H PRN PO 09/04/17 14:15 (Dulcolax Supp) 10 mg DAILY PRN RECTAL 09/04/17 14:15 (Lactulose Liq) 30 ml DAILY PRN PO 09/04/17 14:15 (Heparin Inj) 5,000 units Q12H SQ 09/10/17 20:00 09/12/17 08:02 Lactated Ringer's 1,000 ml @ 30 mls/hr Q24H PRN IV 09/10/17 05:15 09/13/17 05:14 Sodium Chloride 500 ml @ 30 mls/hr [id number] PRN IV 09/10/17 05:15 09/13/17 05:14 (Betadine 5% Antisepsis Kit) 1 applic ASSEMBLY MACHINE SET UP MECHANIC PRN EACH NARE 09/10/17 05:15 09/13/17 05:14 (Chlorhexidine 2% Cloth) 3 pack ASSEMBLY MACHINE SET UP MECHANIC PRN TOPICAL 09/10/17 05:15 09/13/17 05:14 (Morphine Inj) 4 mg Q3H PRN IV PUSH 09/11/17 10:45 09/12/17 08:02 (Hycet 325-7.5 Mg Liq) 15 ml Q4H PRN PO 09/11/17 10:00 Assessment and Plan Problem List: (1) Esophageal obstruction ICD Codes: K22.2 - Esophageal obstruction Status: Acute Plan: peg tube place 09/10/17, for Nutritionals support (2) History of esophageal cancer ICD Codes: Z85.01 - Personal history of malignant neoplasm of esophagus Status: Acute Plan: EGD done 09/10 per oncology notes 09/11 he does have tumor outside of stomach. Not surgical candidate at this time. Will f/u w/ oncology outpatient (3) S/P percutaneous endoscopic gastrostomy (PEG) tube placement ICD Codes: Z93.1 - Gastrostomy status Plan: Will start bolus feed 1/2 can of ensure 4 times day per GI (4) Pain around PEG tube site ICD Codes: T85.848A - Pain due to other internal prosthetic devices, implants and grafts, initial encounter Plan: Requiring IV MS to control pain. Assessment and Plan Start bolus feeding can DC home w/ C once pain control and tolerating bolus feeds Yanet Shepherd Sep 12, 2017 08:37
[2017-09-12] MEDS: SODIUM CHLOR 0.45% 1000 ML INJ 1,000 ML IV SCH ×2 (09:40→21:23)
--- NOTE | 2017-09-12 11:56 | PD.ONC.PN ---
Subjective Subjective Remarks Afebrile overnight. Patient resting in room in nad. sometimes has abdominal pain. continues to use the IV morphine as needed. Objective Data Date Time Temp Pulse Resp B/P (MAP) Pulse Ox O2 Delivery O2 Flow Rate FiO2 09/12/17 08:05 98.1 73 17 111/55 (73) 94 09/12/17 08:00 Room Air 09/12/17 08:00 97.8 70 20 112/57 (75) 96 09/12/17 04:00 97.8 73 17 118/59 (78) 95 09/12/17 00:00 98.1 84 18 129/61 (83) 93 09/11/17 21:54 16 09/11/17 20:15 Room Air 09/11/17 20:00 96.8 71 15 102/57 (72) 96 09/11/17 16:00 Room Air 09/11/17 16:00 97.9 71 18 115/58 (77) 96 09/11/17 12:00 Room Air 09/11/17 12:00 97.1 73 16 125/58 (80) 97 09/12/17 09/12/17 09/12/17 07:00 15:00 23:00 Intake Total 450 ml Balance 450 ml Result Diagram: 09/09/17 1122 09/09/17 1122 Administered Medications Medications (Trade) Dose Ordered Sig/Lauro Route PRN Reason Start Time Stop Time Status Last Admin Dose Admin Sodium Chloride 1,000 ml @ 75 mls/hr [id number] IV 09/04/17 15:00 09/11/17 04:55 Sodium Chloride (NS Flush) 2 ml UNSCH PRN IV FLUSH FLUSH AFTER USING IV ACCESS 09/04/17 14:15 09/11/17 00:26 Sodium Chloride (NS Flush) 2 ml BID IV FLUSH 09/04/17 21:00 09/12/17 08:02 Senna/Docusate Sodium (Arabella-Colace) 1 tab BID PO 09/04/17 21:00 09/12/17 08:02 Heparin Sodium (Porcine) (Heparin Inj) 5,000 units Q12H SQ 09/10/17 20:00 09/12/17 08:02 Morphine Sulfate (Morphine Inj) 4 mg Q3H PRN IV PUSH PAIN SCALE 5 TO 10 09/11/17 10:45 09/12/17 08:02 Objective Remarks GENERAL: Pleasant elderly male, supine in bed. SKIN: Warm and dry. HEAD: Normocephalic. EYES: No injection or drainage. NECK: Supple, trachea midline. CARDIOVASCULAR: Regular rate and rhythm RESPIRATORY: Breath sounds equal bilaterally. No accessory muscle use. GASTROINTESTINAL: Abdomen soft, mildly tender to palpation throughout. G-tube clamped. EXTREMITIES: No cyanosis NEUROLOGICAL: awake and alert. normal speech. Assessment/Plan Assessment 82y/o male with h/o esophageal cancer. Plan 1. await poultry inseminator consult--once patient has started and is tolerating tube feeds he can be discharged home from oncology perspective 2. continue IV morphine as needed, patient also has PRN hycet. 3. plan for follow up in clinic upon discharge Saundra Forbes Sep 12, 2017 11:56 Humberto Pearson MD Sep 12, 2017 19:43
--- NOTE | 2017-09-12 15:37 | HHI.PR ---
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
[2017-09-12] MEDS ORDERED: DIATRIZOATE MEGLUM/DIATRIZOATE SOD 9 ML CUP PO ONE (23:15)
--- NOTE | 2017-09-12 23:27 | RADRPT ---
EXAM DATE/TIME: 09/12/2017 22:49 [place] COMPARISON: No previous studies available for comparison. INDICATIONS : Please confirm PEG tube placement. MEDICAL HISTORY : Carcinoma, prostatic. Carcinoma, esophageal. Gastroesophageal reflux disease. SURGICAL HISTORY : Hernia repair. ENCOUNTER: Initial ACUITY: 1 day PAIN SCORE: 10/10 LOCATION: abdomen. FINDINGS: A single frontal view of the abdomen shows a collection of contrast within the left upper quadrant. C ontrast is also seen within a gastrostomy tube. I do not see distinctive rugal folds involving the co ntrast within the left upper quadrant. No contrast seen within the duodenum. Gas distended loops of l arge and small bowel seen throughout the abdomen. Concern for pneumoperitoneum below the right hemidi aphragm. CONCLUSION: 1. There is contrast within the left upper quadrant but I cannot definitively identify rugal folds to clearly suggest this is within the stomach. I would suggest bilateral decubitus films to better eval uate. 2. Concern for pneumoperitoneum below the right hemidiaphragm. This can be further assessed with the decubitus views. 3. Gas distended loops of large and small bowel. Silas Greene Jr., MD on September 12, 2017 at 23:23 Board Certified Radiologist. This report was verified electronically.
[2017-09-13 03:32] VITALS: BP 94/56; PULSE 82; RESP 16; TEMP 98.6; O2SAT 93
[2017-09-13] MEDS: SODIUM CHLORIDE 0.9% FLUSH 10 ML FLUSH IV FLUSH SCH ×2 (07:15→20:27)
[2017-09-13 08:00] VITALS: BP 101/58; PULSE 72; RESP 16; TEMP 98.1; O2SAT 95
[2017-09-13] MEDS: DOCUSATE SODIUM 50 MG/SENNA 8.6 MG TAB PO SCH ×2 (08:31→20:27)
[2017-09-13] MEDS: HEPARIN SODIUM - SQ 10,000 UNITS/ML VIAL SQ SCH ×2 (08:32→20:25)
[2017-09-13] MEDS: SODIUM CHLOR 0.45% 1000 ML INJ 1,000 ML IV SCH ×2 (08:32→23:29)
--- NOTE | 2017-09-13 09:50 | HHI.PR ---
Subjective Remarks Voices this am there is a problem with his tube. Abdomen drier tender naphthalene Objective Vital Signs Date Time Temp Pulse Resp B/P (MAP) Pulse Ox O2 Delivery O2 Flow Rate FiO2 09/13/17 08:00 98.1 72 16 101/58 (72) 95 09/13/17 04:00 Room Air 09/13/17 03:32 98.6 82 16 94/56 (69) 93 09/13/17 00:00 Room Air 09/12/17 23:25 98.1 74 16 110/57 (74) 95 09/12/17 21:25 Room Air 09/12/17 19:50 97.6 87 16 100/57 (71) 95 09/12/17 16:00 Room Air 09/12/17 16:00 98.1 71 20 121/59 (79) 97 09/12/17 12:00 95.6 70 20 111/59 (76) 95 09/12/17 12:00 Room Air I/O 09/12/17 09/12/17 09/12/17 09/13/17 09/13/17 09/13/17 07:00 15:00 23:00 07:00 15:00 23:00 Intake Total 450 ml 0 ml Balance 450 ml 0 ml Intake Oral 450 ml 0 ml # Voids 6 5 5 # Bowel Movements 0 0 Result Diagram: 09/09/17 1122 09/09/17 1122 Procedures EGD on 09/06/17 Other Results Last 72 hours Impressions Abdomen X-Ray 09/12/17 0000 Signed Impressions: Service Date/Time: August 22:49 - CONCLUSION: 1. There is contrast within the left upper quadrant but I cannot definitively identify rugal folds to clearly suggest this is within the stomach. I would suggest bilateral decubitus films to better evaluate. 2. Concern for pneumoperitoneum below the right hemidiaphragm. This can be further assessed with the decubitus views. 3. Gas distended loops of large and small bowel. Silas Greene Jr., MD Objective Remarks Physical Exam General: thin elderly in no distress SKIN: Warm and dry. HEAD: Normocephalic. EYES: No scleral icterus. No injection or drainage. NECK: Supple, trachea midline. No JVD or lymphadenopathy. LYMPHATIC: No adenopathy. CARDIOVASCULAR: Regular rate and rhythm without murmurs. RESPIRATORY: Breath sounds equal bilaterally. No accessory muscle use. GASTROINTESTINAL: Abdomen soft, nondistended, very tender, peg tube in place EXTREMITIES: No cyanosis, or edema. MUSCULOSKELETAL: muscle wasting. NEUROLOGICAL: .Awake, alert, and oriented x3. Medications and IVs Current Medications Medications (Trade) Dose Ordered Sig/Lauro Route Start Time Stop Time Status Last Admin Sodium Chloride 1,000 ml @ 75 mls/hr [id number] IV 09/04/17 15:00 09/11/17 04:55 (NS Flush) 2 ml UNSCH PRN IV FLUSH 09/04/17 14:15 09/11/17 00:26 (NS Flush) 2 ml BID IV FLUSH 09/04/17 21:00 09/13/17 07:15 (Tylenol) 650 mg Q4H PRN PO 09/04/17 14:15 (Zofran Inj) 4 mg Q6H PRN IVP 09/04/17 14:15 (Narcan Inj) 0.4 mg UNSCH PRN IV PUSH 09/04/17 14:15 (Arabella-Colace) 1 tab BID PO 09/04/17 21:00 09/13/17 08:31 (Milk Of Magnesia Liq) 30 ml Q12H PRN PO 09/04/17 14:15 (Senokot) 17.2 mg Q12H PRN PO 09/04/17 14:15 (Dulcolax Supp) 10 mg DAILY PRN RECTAL 09/04/17 14:15 (Lactulose Liq) 30 ml DAILY PRN PO 09/04/17 14:15 (Heparin Inj) 5,000 units Q12H SQ 09/10/17 20:00 09/13/17 08:32 (Morphine Inj) 4 mg Q3H PRN IV PUSH 09/11/17 10:45 09/12/17 18:20 (Hycet 325-7.5 Mg Liq) 15 ml Q4H PRN PO 09/11/17 10:00 Assessment and Plan Problem List: (1) Esophageal obstruction ICD Codes: K22.2 - Esophageal obstruction Status: Acute Plan: peg tube place 09/10/17, for Nutritionals support (2) History of esophageal cancer ICD Codes: Z85.01 - Personal history of malignant neoplasm of esophagus Status: Acute Plan: EGD done 09/10 per oncology notes 09/11 he does have tumor outside of stomach. Not surgical candidate at this time. Will f/u w/ oncology outpatient (3) S/P percutaneous endoscopic gastrostomy (PEG) tube placement ICD Codes: Z93.1 - Gastrostomy status Plan: Will start bolus feed 1/2 can of ensure 4 times day per GI. Patient given 1/2 can yesterday. Placement checked for second feeding unable to determine placement. Xray completed--> concerning for pneumoperitoneum below Right Hemidiaphragm. F/U image w/ decubitus view. (4) Pain around PEG tube site ICD Codes: T85.848A - Pain due to other internal prosthetic devices, implants and grafts, initial encounter Plan: Pain better. Assessment and Plan Home when cleared by Yanet Hodge Sep 13, 2017 09:50
[2017-09-13 12:00] VITALS: BP 117/58; PULSE 71; RESP 18; TEMP 98.2; O2SAT 96
[2017-09-13 16:00] VITALS: BP 114/57; PULSE 68; RESP 18; TEMP 98.3; O2SAT 95
[2017-09-13 19:42] VITALS: BP 108/60; PULSE 78; RESP 17; TEMP 98.3; O2SAT 96
[2017-09-13] MEDS: MORPHINE SULFATE 2 MG/ML SYRINGE IV PUSH PRN (20:21)
[2017-09-13 23:20] VITALS: BP 105/54; PULSE 75; RESP 16; TEMP 97.9; O2SAT 95
[2017-09-14 03:32] VITALS: BP 113/60; PULSE 79; RESP 16; TEMP 97.7; O2SAT 94
[2017-09-14 08:00] VITALS: BP 115/59; PULSE 75; RESP 16; TEMP 97.5; O2SAT 96
[2017-09-14] MEDS: DOCUSATE SODIUM 50 MG/SENNA 8.6 MG TAB PO SCH ×3 (09:00→21:13)
[2017-09-14] MEDS: SODIUM CHLORIDE 0.9% FLUSH 10 ML FLUSH IV FLUSH SCH ×2 (09:18→21:14)
[2017-09-14] MEDS: HEPARIN SODIUM - SQ 10,000 UNITS/ML VIAL SQ SCH ×2 (09:18→21:14)
[2017-09-14] MEDS: MORPHINE SULFATE 2 MG/ML SYRINGE IV PUSH PRN ×2 (09:21→12:32)
[2017-09-14 12:00] VITALS: BP 105/78; PULSE 88; RESP 20; TEMP 97.6; O2SAT 92
--- NOTE | 2017-09-14 14:45 | HHI.PR ---
Subjective Remarks Patient seen and examined. He has esophageal cancer and problems swallowing prompting a G Tube placement. I am told the PEG is not functioning and surgery will need to reassess. Objective Vital Signs Date Time Temp Pulse Resp B/P (MAP) Pulse Ox O2 Delivery O2 Flow Rate FiO2 09/14/17 12:00 97.6 88 20 105/78 (87) 92 09/14/17 08:00 97.5 75 16 115/59 (77) 96 09/14/17 04:00 Room Air 09/14/17 03:32 97.7 79 16 113/60 (77) 94 09/14/17 00:00 Room Air 09/13/17 23:20 97.9 75 16 105/54 (71) 95 09/13/17 22:06 17 09/13/17 20:25 Room Air 09/13/17 19:42 98.3 78 17 108/60 (76) 96 09/13/17 16:00 98.3 68 18 114/57 (76) 95 I/O 09/13/17 09/13/17 09/13/17 09/14/17 09/14/17 09/14/17 07:00 15:00 23:00 07:00 15:00 23:00 Intake Total 0 ml 120 ml 120 ml Balance 0 ml 120 ml 120 ml Intake Oral 0 ml 120 ml 120 ml # Voids 5 6 3 # Bowel Movements 0 3 1 Imaging Last Impressions Abdomen X-Ray 09/12/17 0000 Signed Impressions: Service Date/Time: August 22:49 - CONCLUSION: 1. There is contrast within the left upper quadrant but I cannot definitively identify rugal folds to clearly suggest this is within the stomach. I would suggest bilateral decubitus films to better evaluate. 2. Concern for pneumoperitoneum below the right hemidiaphragm. This can be further assessed with the decubitus views. 3. Gas distended loops of large and small bowel. Silas Greene Jr., MD Chest X-Ray 09/04/17 0825 Signed Impressions: Service Date/Time: Monday, September 04, 2017 08:35 - CONCLUSION: New minimal parenchymal changes right apex New from comparison study. Waldemar Mckeon MD FACR Procedures EGD on 09/06/17 Objective Remarks HEENT - Afebrile with AT/NC head Lungs - CTA CV - RRR without rub or gallop Abd - Soft and tender around PEG but no erythema or D/C is noted. Active BS present. Neuro - alert and oriented Medications and IVs Current Medications Medications (Trade) Dose Ordered Sig/Lauro Route Start Time Stop Time Status Last Admin Sodium Chloride 1,000 ml @ 75 mls/hr [id number] IV 09/04/17 15:00 09/11/17 04:55 (NS Flush) 2 ml UNSCH PRN IV FLUSH 09/04/17 14:15 09/11/17 00:26 (NS Flush) 2 ml BID IV FLUSH 09/04/17 21:00 09/14/17 09:18 (Tylenol) 650 mg Q4H PRN PO 09/04/17 14:15 (Zofran Inj) 4 mg Q6H PRN IVP 09/04/17 14:15 (Narcan Inj) 0.4 mg UNSCH PRN IV PUSH 09/04/17 14:15 (Arabella-Colace) 1 tab BID PO 09/04/17 21:00 09/13/17 08:31 (Milk Of Magnesia Liq) 30 ml Q12H PRN PO 09/04/17 14:15 (Senokot) 17.2 mg Q12H PRN PO 09/04/17 14:15 (Dulcolax Supp) 10 mg DAILY PRN RECTAL 09/04/17 14:15 (Lactulose Liq) 30 ml DAILY PRN PO 09/04/17 14:15 (Heparin Inj) 5,000 units Q12H SQ 09/10/17 20:00 09/14/17 09:18 (Morphine Inj) 4 mg Q3H PRN IV PUSH 09/11/17 10:45 09/14/17 12:32 (Hycet 325-7.5 Mg Liq) 15 ml Q4H PRN PO 09/11/17 10:00 Assessment and Plan Problem List: (1) Esophageal adenocarcinoma ICD Codes: C15.9 - Malignant neoplasm of esophagus, unspecified Status: Chronic Plan: Had PEG placed for nurtrition and is requesting D/C home but I am told the PEG is not working. Will ask surgery to reassess. (2) Esophageal obstruction ICD Codes: K22.2 - Esophageal obstruction Status: Acute Plan: Only tolerating liquids. Now with PEG but I am told it is not working. Assessment and Plan Esophageal cancer now with swallowing problems. Bx done and surgery placed a PEG but I am told it is not working. Will ask surgery reassess and D/C when cleared. Discussed Condition With Patient and spouse Discharge Planning Home when PEG works Chaim Yoo Sep 14, 2017 14:45
[2017-09-14] MEDS ORDERED: DIATRIZOATE MEGLUM/DIATRIZOATE SOD 120 ML BTL (for RAD DIAG) G-TUBE ONE (15:31)
[2017-09-14 16:00] VITALS: BP 119/56; PULSE 77; RESP 18; TEMP 98; O2SAT 95
--- NOTE | 2017-09-14 16:19 | RADRPT ---
EXAM DATE/TIME: 09/14/2017 14:55 [facility] COMPARISON: ABDOMEN SINGLE VIEW, September 12, 2017, 22:49. INDICATIONS : Confirm G-tube placement. MEDICAL HISTORY : Carcinoma, prostatic. Carcinoma, esophageal. Gastroesophageal reflux disease. SURGICAL HISTORY : Hernia repair. ENCOUNTER: Subsequent ACUITY: 2 days PAIN SCORE: 0/10 LOCATION: Bilateral abdomen. FINDINGS: Examination of the abdomen demonstrates a PEG tube in the left upper abdominal quadrant with T-fasten ers. Contrast is seen in the gastric fundus and in portions of the colon. No contrast outside of the bowel. Some air distention of the colon may represent some degree of hypodynamic ileus. As seen previ ously, there is some air density in the right upper abdominal quadrant. Findings could represent some pneumoperitoneum, possibly associated with tube placement. CONCLUSION: 1. Contrast is all contained within the bowel. As such, PEG tube is confirmed in the gastric lumen. 2. Air distention of some small bowel loops with contrast identified in the colon. Findings suggest a mild hypodynamic ileus. 3. Air density in the right upper abdominal quadrant and midline could represent pneumoperitoneum ass ociated with tube placement. Again, no contrast is identified in the peritoneal cavity to suggest an ongoing leak. Albin Fontaine MD on September 14, 2017 at 16:11 Board Certified Radiologist. This report was verified electronically.
[2017-09-14 20:00] VITALS: BP 100/54; PULSE 78; RESP 19; TEMP 98; O2SAT 98
[2017-09-15] VITALS: BP 92/51; PULSE 76; RESP 17; TEMP 97.6; O2SAT 97
[2017-09-15 00:57] VITALS: BP 92/51
[2017-09-15 04:00] VITALS: BP 96/55; PULSE 71; RESP 17; TEMP 98.2; O2SAT 98
[2017-09-15] MEDS: SODIUM CHLOR 0.45% 1000 ML INJ 1,000 ML IV SCH (04:20)
[2017-09-15 08:00] VITALS: BP 103/59; PULSE 67; RESP 16; TEMP 97.7; O2SAT 96
[2017-09-15] MEDS: DOCUSATE SODIUM 50 MG/SENNA 8.6 MG TAB PO SCH (09:00)
[2017-09-15] MEDS: SODIUM CHLORIDE 0.9% FLUSH 10 ML FLUSH IV FLUSH SCH (09:20)
[2017-09-15] MEDS: HEPARIN SODIUM - SQ 10,000 UNITS/ML VIAL SQ SCH (09:20)
[2017-09-15] MEDS ORDERED: HYDR1SOL6 PO (10:18)
--- NOTE | 2017-09-15 10:19 | HHI.DS ---
Discharge Summary Admission Date Sep 04, 2017 at 14:11 Discharge Date: Sep 15, 2017 Admitting Diagnosis Esophageal obstruction. History of esophageal cancer. (1) Esophageal obstruction ICD Codes: K22.2 - Esophageal obstruction Status: Acute (2) Esophageal adenocarcinoma ICD Codes: C15.9 - Malignant neoplasm of esophagus, unspecified Status: Chronic (3) S/P percutaneous endoscopic gastrostomy (PEG) tube placement ICD Codes: Z93.1 - Gastrostomy status Procedures EGD on 09/06/17 Brief History He presented with weight loss and problems swallowing. He was seen and followed by GI and Surgery for adenocarcinoma of the esophagus. Significant Findings Bx revealed adenocarcinoma of the distal esophagus with extension outside esophagus. Imaging Last Impressions Abdomen X-Ray 09/14/17 0000 Signed Impressions: Service Date/Time: Thursday, September 14, 2017 14:55 - CONCLUSION: 1. Contrast is all contained within the bowel. As such, PEG tube is confirmed in the gastric lumen. 2. Air distention of some small bowel loops with contrast identified in the colon. Findings suggest a mild hypodynamic ileus. 3. Air density in the right upper abdominal quadrant and midline could represent pneumoperitoneum associated with tube placement. Again, no contrast is identified in the peritoneal cavity to suggest an ongoing leak. Albin Fontaine MD Chest X-Ray 09/04/17 0825 Signed Impressions: Service Date/Time: Monday, September 04, 2017 08:35 - CONCLUSION: New minimal parenchymal changes right apex New from comparison study. Wlademar Mckeon MD FACR PE at Discharge HEENT - Afebrile with AT/NC head Lungs - CTA CV - RRR without rub or gallop Abd - Soft and tender around PEG but no erythema or D/C is noted. Active BS present. Neuro - alert and oriented Hospital Course After presenting with weight loss he was seen by GI and EGD revealed esophageal cancer with extension and Surgery was consulted for PEG. After initially not functioning per RN, it is now working and placement confirmed radiographically. He will be D/C home today and will F/U with Onc and GI as they have requested. He will remain on bolus TF and thin liquids. He will go home with liquid Oxycodone for pain. He denies any need for HHS. We will F/U in our office next week. Pt Condition on Discharge: Fair Discharge Disposition: Discharge Home Discharge Instructions DIET: Follow Instructions for: As Tolerated, No Restrictions, Full Liquid Diet , On Tube Feeding Activities you can perform: Regular-No Restrictions Medication Profile: No Active Prescriptions or Reported Meds Chaim Yoo Sep 15, 2017 10:19
[2017-09-15 12:00] VITALS: BP 101/58; PULSE 79; RESP 16; TEMP 98; O2SAT 98
== END 2017-09-15 13:50 | disposition home health service (06) | DRG 356 ==
LOC: NEPC 07:57 → NEDA 14:11 → N04B 19:50
PROVIDERS: ADMIT Family Medicine; ATTEND Family Medicine
PROC: 0DB48ZX Excision of Esophagogastric Junction, Via Natural or Artificial Opening Endoscopic, Diagnostic (ICD-10-PCS; principal; 2017-09-05 11:52)
PROC: 0WJP4ZZ Inspection of Gastrointestinal Tract, Percutaneous Endoscopic Approach (ICD-10-PCS; 2017-09-10)
PROC: 0WJJ4ZZ Inspection of Pelvic Cavity, Percutaneous Endoscopic Approach (ICD-10-PCS; 2017-09-10)
PROC: 0DB64ZX Excision of Stomach, Percutaneous Endoscopic Approach, Diagnostic (ICD-10-PCS; 2017-09-10)
PROC: 0DH64UZ Insertion of Feeding Device into Stomach, Percutaneous Endoscopic Approach (ICD-10-PCS; 2017-09-10)
DX: C78.89 Secondary malignant neoplasm of other digestive organs (principal); K22.6 Gastro-esophageal laceration-hemorrhage syndrome; E46 Unspecified protein-calorie malnutrition; R18.8 Other ascites; K22.2 Esophageal obstruction; K74.60 Unspecified cirrhosis of liver; Z88.0 Allergy status to penicillin; Z85.01 Personal history of malignant neoplasm of esophagus; Z92.21 Personal history of antineoplastic chemotherapy; Z92.3 Personal history of irradiation; Z87.19 Personal history of other diseases of the digestive system; Z85.46 Personal history of malignant neoplasm of prostate; K21.9 Gastro-esophageal reflux disease without esophagitis; I10 Essential (primary) hypertension; E78.5 Hyperlipidemia, unspecified; F17.210 Nicotine dependence, cigarettes, uncomplicated; M19.90 Unspecified osteoarthritis, unspecified site; F10.20 Alcohol dependence, uncomplicated
CPT/HCPCS: 71045; 74018; 80048; 80053; 82378; 85025; 85610; 85730; 88112; 88305; 88307; 88341; 88342; 93005; J1644; J2270; J2370; J2405; J2710; J3010; J7120; Q9963

== ENCOUNTER → 2017-09-20 | Outpatient (CLI) | payer MEDICARE, OTHER ==
[~2017-09-20] VITALS: Ht 180.3 cm; Wt 58.5 kg
[~2017-09-20] MED LIST changes: -ATOR10TA PO; -CHLO10 PO; +CHLORHEXIDINE GLUCONATE 2 % 1 PACK (2 CLOTHS) TOPICAL PRN; -FLUC100T41 PO; -FOLI1 PO; +HYDR1SOL6 PO; +LACTATED RINGER'S 1000 ML IV PRN; +LIDOCAINE HCL 1% PF 5 ML SYRINGE OTHER ONE; +METOPROLOL TARTRATE 25 MG TAB PO PRN; -OMEP20TA39 PO; -OXYC1SOL5 PO; +POVIDONE IODINE 5% (ANTISEPSIS KIT) 4 APPLICATIONS EACH NARE PRN; +PROPOFOL 200 MG/20 ML AMP IV ONE; +SODIUM CHLORID 0.9% 500 ML IV PRN; -THIA100T PO; +ePHEDrine/NS 25 MG/5 ML SYRINGE IV ONE
--- NOTE | 2017-09-20 10:25 | PD.PROCEDR ---
GI Procedure PROCEDURE PERFORMED EGD with savory dilation and endoscopic ultrasound INDICATION FOR PROCEDURE History of esophageal cancer, dysphagia, recurrence of esophageal cancer PROCEDURE: The procedure, risks and benefits were discussed with Patient/POA and informed consent was obtained. Anesthesia sedated Patient with Diprivan. Patient was placed in the left lateral decubitus position. EGD: The Pentax videoscope was introduced through the oropharynx and advanced to the second portion of the duodenum under direct visualization. Retroflexion was performed in the stomach. 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 for 6 hours then clear liquid diet for today and advance tomorrow Alfredo Murrell MD Sep 20, 2017 10:25
[2017-09-20 10:31] VITALS: BP 104/56; PULSE 69; RESP 18; TEMP 97.7; O2SAT 100
== END ==
LOC: HSDC 07:50
PROVIDERS: ATTEND Internal Medicine Gastroenterology
DX: K31.9 Disease of stomach and duodenum, unspecified (principal); R13.10 Dysphagia, unspecified; Z85.01 Personal history of malignant neoplasm of esophagus
CPT/HCPCS: 00731; 43248; 43259; C1769